=== PATIENT | male | born 1940 | race Caucasian/White ===

== ENCOUNTER 2017-10-22 13:50 | Inpatient (IN) | payer MEDICARE, OTHER ==
--- NOTE | 2017-10-22 14:57 | EDM.PDOC ---
ED HPI GENERAL MEDICAL PROBLEM - General Chief Complaint: General Stated Complaint: WEAK Time Seen by Provider: 10/22/17 14:00 Source of Information: Reports: Patient, Family History Limitations: Reports: Altered Mental Status - History of Present Illness INITIAL COMMENTS - FREE TEXT/NARRATIVE: 77 y.o.w.m cam with his brother in law to the ed due mental status changes, forgetfulness of recent events, disorientation to time, person and event. Pt had a recent auction and the Pt did not remember what he had to sell and if the produces were workin/sellable. He did not eat in the past 3 days. His 1998. He lives by himself close to his sister. Pt is a poor historian. BP 152/87 pulse 108 RR 18 Pulse ox 95% 0n RA, Temp 36.7 Onset Date: 10/19/17 Onset Time: 07:00 Duration: Day(s):, Getting Worse Location: Reports: Generalized Quality: Reports: Other (forgetfullness) Severity: Moderate Improves with: Reports: None Worsens with: Reports: None Context: Reports: Other Associated Symptoms: Reports: Loss of Appetite Generalized Pain Score (Numeric/FACES): 4 denies any pain when asked at present time. Pain Score (Numeric/FACES): 0 LEFT KNEE Pain Score (Numeric/FACES): 3 - Related Data Allergies Allergy/AdvReac Type Severity Reaction Status Date / Time No Known Allergies Allergy Unverified 10/22/17 14:20 Home Meds: Home Meds Gabapentin [Neurontin] 600 mg PO QID 10/22/17 [History] traZODone HCl [Trazodone HCl] 150 mg PO BEDTIME 10/22/17 [History] Acetaminophen [Tylenol Extra Strength] 1,000 mg PO Q6H PRN 10/23/17 [History] Donepezil HCl [Aricept] 10 mg PO DAILY #30 tablet 10/24/17 [Rx] ED ROS GENERAL - Review of Systems Review Of Systems: Unable To Obtain (forgetfulness, Ox1) ED EXAM, GENERAL - Physical Exam Exam: See Below Exam Limited By: Altered Mental Status General Appearance: Alert, WD/WN, Mild Distress Eye Exam: Bilateral Eye: EOMI, Normal Inspection, Proptosis (minor exophthalmus) Ears: Normal External Exam, Normal Canal Ear Exam: Bilateral Ear: Auricle Normal Nose: Normal Inspection, Normal Mucosa Throat/Mouth: Normal Lips, No Airway Compromise, Other (dry mucosal membrane) Head: Atraumatic, Normocephalic Neck: Normal Inspection, Supple, Non-Tender, Full Range of Motion Respiratory/Chest: No Respiratory Distress, Lungs Clear, Normal Breath Sounds, Chest Non-Tender Cardiovascular: Normal Peripheral Pulses, Regular Rate, Rhythm Peripheral Pulses: 1+: Brachial (L) GI/Abdominal: Normal Bowel Sounds, Soft, Non-Tender, No Organomegaly, No Mass (Male) Exam: No Hernia, Deferred Rectal (Males) Exam: Deferred Back Exam: Normal Inspection, Full Range of Motion Extremities: Normal Inspection, Normal Range of Motion, Non-Tender, No Pedal Edema, Normal Capillary Refill Neurological: Alert, CN II-XII Intact, Normal Gait, Slow to Respond, Memory Loss Recent Events Psychiatric: Depressed Mood Skin Exam: Warm, Dry, Intact, Normal Color, No Rash Lymphatic: No Adenopathy Course - Vital Signs Text/Narrative:: 77 y.o.w.m cam with his brother in law to the ed due mental status changes, forgetfulness of recent events, disorientation to time, person and event. Pt had a recent auction and the Pt did not remember what he had to sell and if the produces were workin/sellable. He did not eat in the past 3 days. His 1998. He lives by himself close to his sister. Pt is a poor historian. BP 152/87 pulse 108 RR 18 Pulse ox 95% 0n RA, Temp 36.7 PE: Thin 77 y.o.w.m OX1, nonspecific complains Imaging: Brain atrophy including mod frontocortical atrophy Labs: Lactic acid 2.5 K 3.3 Glc 136 Etoh 0.03 TSH 1.07 Impression: Mental status changes with forgetfulness, disorientation and loss of apatite. Hypokalemia, dehydration 3.01 pm Consultation: Dr. Arteaga, Hospitalist: Accepted pt for admission Last Recorded V/S: Last Vital Signs Temp 36.9 C 10/24/17 07:25 Pulse 75 10/24/17 07:25 Resp 20 10/24/17 07:25 BP 130/90 10/24/17 07:25 Pulse Ox 96 10/24/17 07:25 - Orders/Labs/Meds Labs: Laboratory Tests 10/22/17 10/22/17 10/22/17 Range/Units 14:25 14:25 14:25 WBC 9.2 (4.5-12.0) X10-3/uL RBC 5.06 (4.30-5.75) x10(6)uL Hgb 15.7 H (11.5-15.5) g/dL Hct 47.5 (30.0-51.3) % MCV 94.0 (80-96) fL MCH 31.1 (27.7-33.6) pg MCHC 33.1 (32.2-35.4) g/dL RDW 13.2 (11.5-15.5) % Plt Count 381 H (125-369) X10(3)uL MPV 7.6 (7.4-10.4) fL Neut % (Auto) 72.7 (46-82) % Lymph % (Auto) 15.2 (13-37) % Irion % (Auto) 11.2 (4-12) % Eos % (Auto) 0 L (1.0-5.0) % Baso % (Auto) 1 (0-2) % Neut # (Auto) 6.8 (1.6-8.3) # Lymph # (Auto) 1.4 (0.6-5.0) # Irion # (Auto) 1.0 (0.0-1.3) # Eos # (Auto) 0.0 (0.0-0.8) # Baso # (Auto) 0.0 (0.0-0.2) # Sodium 139 (135-145) mmol/L Potassium 3.3 L (3.5-5.3) mmol/L Chloride 99 L (100-110) mmol/L Carbon Dioxide 28 (21-32) mmol/L BUN 36 H (7-18) mg/dL Creatinine 1.1 (0.70-1.30) mg/dL Est Cr Clr Drug Dosing 54.45 mL/min Estimated GFR (MDRD) > 60 (>60) BUN/Creatinine Ratio 32.7 H (9-20) Glucose 136 H (80-116) mg/dL Lactic Acid (0.4-2.2) mmol/L Calcium 9.5 (8.6-10.2) mg/dL Phosphorus (2.6-4.6) mg/dL Magnesium (1.8-2.5) mg/dL NT-Pro-B Natriuret Pep 254 (<=450) pg/mL TSH, Ultra Sensitive (0.36-3.74) IU/mL Ethyl Alcohol (<0.03) % 10/22/17 10/22/17 10/22/17 Range/Units 14:25 14:25 14:25 WBC (4.5-12.0) X10-3/uL RBC (4.30-5.75) x10(6)uL Hgb (11.5-15.5) g/dL Hct (30.0-51.3) % MCV (80-96) fL MCH (27.7-33.6) pg MCHC (32.2-35.4) g/dL RDW (11.5-15.5) % Plt Count (125-369) X10(3)uL MPV (7.4-10.4) fL Neut % (Auto) (46-82) % Lymph % (Auto) (13-37) % Irion % (Auto) (4-12) % Eos % (Auto) (1.0-5.0) % Baso % (Auto) (0-2) % Neut # (Auto) (1.6-8.3) # Lymph # (Auto) (0.6-5.0) # Irion # (Auto) (0.0-1.3) # Eos # (Auto) (0.0-0.8) # Baso # (Auto) (0.0-0.2) # Sodium (135-145) mmol/L Potassium (3.5-5.3) mmol/L Chloride (100-110) mmol/L Carbon Dioxide (21-32) mmol/L BUN (7-18) mg/dL Creatinine (0.70-1.30) mg/dL Est Cr Clr Drug Dosing mL/min Estimated GFR (MDRD) (>60) BUN/Creatinine Ratio (9-20) Glucose (80-116) mg/dL Lactic Acid 2.5 H (0.4-2.2) mmol/L Calcium (8.6-10.2) mg/dL Phosphorus (2.6-4.6) mg/dL Magnesium (1.8-2.5) mg/dL NT-Pro-B Natriuret Pep (<=450) pg/mL TSH, Ultra Sensitive 1.07 (0.36-3.74) IU/mL Ethyl Alcohol < 0.03 (<0.03) % 10/22/17 Range/Units 14:25 WBC (4.5-12.0) X10-3/uL RBC (4.30-5.75) x10(6)uL Hgb (11.5-15.5) g/dL Hct (30.0-51.3) % MCV (80-96) fL MCH (27.7-33.6) pg MCHC (32.2-35.4) g/dL RDW (11.5-15.5) % Plt Count (125-369) X10(3)uL MPV (7.4-10.4) fL Neut % (Auto) (46-82) % Lymph % (Auto) (13-37) % Irion % (Auto) (4-12) % Eos % (Auto) (1.0-5.0) % Baso % (Auto) (0-2) % Neut # (Auto) (1.6-8.3) # Lymph # (Auto) (0.6-5.0) # Irion # (Auto) (0.0-1.3) # Eos # (Auto) (0.0-0.8) # Baso # (Auto) (0.0-0.2) # Sodium (135-145) mmol/L Potassium (3.5-5.3) mmol/L Chloride (100-110) mmol/L Carbon Dioxide (21-32) mmol/L BUN (7-18) mg/dL Creatinine (0.70-1.30) mg/dL Est Cr Clr Drug Dosing mL/min Estimated GFR (MDRD) (>60) BUN/Creatinine Ratio (9-20) Glucose (80-116) mg/dL Lactic Acid (0.4-2.2) mmol/L Calcium (8.6-10.2) mg/dL Phosphorus 3.3 (2.6-4.6) mg/dL Magnesium 1.8 (1.8-2.5) mg/dL NT-Pro-B Natriuret Pep (<=450) pg/mL TSH, Ultra Sensitive (0.36-3.74) IU/mL Ethyl Alcohol (<0.03) % Meds: Medications Discontinued Medications Generic Name Dose Route Start Last Admin Trade Name Freq PRN Reason Stop Dose Admin Al Hydroxide/Mg Hydroxide 30 ml 10/22/17 21:22 10/22/17 21:42 Mag-Al Susp PO 30 ml Q4H PRN Administration Heartburn Sodium Chloride 1,000 mls @ 125 mls/hr 10/22/17 17:45 10/23/17 02:02 Normal Saline IV 125 mls/hr ASDIRECTED DAVID Administration Potassium Chloride 20 meq 10/23/17 09:00 10/24/17 09:30 Klor-Con M20 PO 20 meq BID DAVID Administration Quetiapine Fumarate 25 mg 10/22/17 21:00 10/23/17 20:17 Seroquel PO 25 mg BEDTIME DAVID Administration Sodium Chloride 10 ml 10/22/17 18:04 10/22/17 19:15 Saline Flush FLUSH 10 ml ASDIRECTED PRN Administration Keep Vein Open Sodium Chloride 10 ml 10/23/17 08:20 Saline Flush FLUSH ASDIRECTED PRN flush med Trolamine Salicylate 1 gm 10/24/17 04:45 10/24/17 05:05 Aspercreme 10% TOP 1 applic Q1H PRN Administration pain in knee Departure - Departure Time of Disposition: 07:00 Disposition: Admitted As Inpatient 64 Condition: Fair Clinical Impression: Mental status change - Discharge Information
--- NOTE | 2017-10-22 15:23 | CT ---
INDICATION: Mental status change, confusion, frontal headache. HEAD CT WITHOUT CONTRAST: Serial contiguous 2.5 and 5-mm sections were obtained through the brain without contrast and revealed no definite cranial abnormality. Total Exam DLP = 949.36 mGy-cm. Mastoid air cells and paranasal air cells appear to be fairly well aerated. Calcifications are noted in the internal carotid arteries. No shift of midline structures was seen. Ventricles are prominent, compatible with central atrophy. Frontocortical atrophy is also noted relatively prominently. Decreased density is patchy throughout the white matter, compatible with moderate to moderately severe microvascular disease, although other cause of leukoencephalopathy cannot be excluded. Additionally, there is an area of decreased density in the posterior frontoparietal area, parasagittal on the left , which could represent an old thrombotic CVA. No other abnormal areas of density were suggested - no bleeding site or hematoma was seen. IMPRESSION: 1. No definite acute intracranial abnormality. 2. 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 3. Central and frontocortical atrophy. 4. 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 Report was called to Dr. Salamanca at approximately 1500 hours, 10/22/2017. [facility]
--- NOTE | 2017-10-22 17:46 | PCM.HP ---
H&P History of Present Illness - General Date of Service: 10/22/17 Admit Problem/Dx: Admission Diagnosis/Problem Admission Diagnosis/Problem Mental status, decreased Source of Information: Patient, Family, Old Records History Limitations: Reports: Altered Mental Status - History of Present Illness Initial Comments - Free Text/Narative: Gonzalez is a 77-year-old male well-known to me. He came to the ER by his friend because of alteration of mental status. Last 2-3 days is noted to be confused eating very little and feeling poorly. He denies any pain headache chest pain or shortness of breath. And is not sure these lost any weight. Is previously healthy with exception of diverticular disease, recent left knee replacement and foot surgery. He said some chronic back pain in the past as well. Generalized Pain Score (Numeric/FACES): 4 - Related Data Allergies/Adverse Reactions: Allergies Allergy/AdvReac Type Severity Reaction Status Date / Time No Known Allergies Allergy Unverified 10/22/17 14:20 Home Medications: Home Meds Gabapentin [Neurontin] 600 mg PO BID 10/22/17 [History] traZODone HCl [Trazodone HCl] 150 mg PO BEDTIME 10/22/17 [History] Past Medical History - Past Health History Medical/Surgical History: Denies Medical/Surgical History Gastrointestinal History: Reports: GERD Musculoskeletal History: Reports: Arthritis, Back Pain, Chronic Psychiatric History: Reports: Other (See Below) Other Psychiatric History: IS ALITTLE FORGETFUL, LIKE DATE, SOME PAST EVENTS Dermatologic History: Reports: None - Infectious Disease History Infectious Disease History: Reports: None - Past Surgical History GI Surgical History: Reports: Cholecystectomy, Colonoscopy, Hernia, Abdominal Musculoskeletal Surgical History: Reports: Knee Replacement Dermatological Surgical History: Reports: Skin Graft, Other (See Below) Social & Family History - Family History Family Medical History: Unobtainable - Tobacco Use Smoking Status *Q: Never Smoker Second Hand Smoke Exposure: No - Caffeine Use Caffeine Use: Reports: Coffee, Soda - Alcohol Use Days Per Week of Alcohol Use: 3 Number of Drinks Per Day: 2 Total Drinks Per Week: 6 Date of Last Drink: 10/19/17 Time of Last Drink: 16:00 - Recreational Drug Use Recreational Drug Use: No H&P Review of Systems - Review of Systems: Review Of Systems: ROS reveals no pertinent complaints other than HPI. Exam - Exam Exam: See Below - Vital Signs Vital Signs: Last Vital Signs Temp 98.1 F 10/22/17 16:01 Pulse 104 H 10/22/17 16:01 Resp 22 H 10/22/17 16:01 BP 155/103 H 10/22/17 16:01 Pulse Ox 95 10/22/17 16:01 Weight: 71.94 kg - Exam General: Alert, Oriented, 4 HEENT: PERRLA, Hearing Intact, Mucosa Moist & [place], Nares Patent, Normal Nasal Septum, Posterior Pharynx Clear, Conjunctiva Clear, EOMI, EACs Clear, TMs Clear Neck: Supple, Trachea Midline, 2 Lungs: Clear to Auscultation, Normal Respiratory Effort Cardiovascular: Regular Rate, Regular Rhythm GI/Abdominal Exam: Normal Bowel Sounds, Soft, Non-Tender, No Organomegaly, No Distention, No Abnormal Bruit, No Mass, Pelvis Stable (Male) Exam: Deferred Rectal (Males) Exam: Normal Exam, Normal Rectal Tone, Prostate Normal Back Exam: Normal Inspection, Full Range of Motion, NT Extremities: Normal Inspection, Normal Range of Motion, Non-Tender, No Pedal Edema, Normal Capillary Refill Skin: Warm, Dry, Intact Neurological: Cranial Nerves Intact, Reflexes Equal Bilateral Neuro Extensive - Mental Status: Alert, Oriented x3, Normal Mood/Affect, Normal Cognition Neuro Extensive - Motor, Sensory, Reflexes: CN II-XII Intact, Normal Gait, Normal Reflexes Psychiatric: Alert, Normal Affect, Other (confused) - Patient Data Lab Results Last 24 hrs: Laboratory Results - last 24 hr 10/22/17 10/22/17 10/22/17 Range/Units 14:25 14:25 14:25 WBC 9.2 (4.5-12.0) X10-3/uL RBC 5.06 (4.30-5.75) x10(6)uL Hgb 15.7 H (11.5-15.5) g/dL Hct 47.5 (30.0-51.3) % MCV 94.0 (80-96) fL MCH 31.1 (27.7-33.6) pg MCHC 33.1 (32.2-35.4) g/dL RDW 13.2 (11.5-15.5) % Plt Count 381 H (125-369) X10(3)uL MPV 7.6 (7.4-10.4) fL Neut % (Auto) 72.7 (46-82) % Lymph % (Auto) 15.2 (13-37) % [place] % (Auto) 11.2 (4-12) % Eos % (Auto) 0 L (1.0-5.0) % Baso % (Auto) 1 (0-2) % Neut # (Auto) 6.8 (1.6-8.3) # Lymph # (Auto) 1.4 (0.6-5.0) # [place] # (Auto) 1.0 (0.0-1.3) # Eos # (Auto) 0.0 (0.0-0.8) # Baso # (Auto) 0.0 (0.0-0.2) # Sodium 139 (135-145) mmol/L Potassium 3.3 L (3.5-5.3) mmol/L Chloride 99 L (100-110) mmol/L Carbon Dioxide 28 (21-32) mmol/L BUN 36 H (7-18) mg/dL Creatinine 1.1 (0.70-1.30) mg/dL Est Cr Clr Drug Dosing 54.45 mL/min Estimated GFR (MDRD) > 60 (>60) BUN/Creatinine Ratio 32.7 H (9-20) Glucose 136 H (80-116) mg/dL Lactic Acid (0.4-2.2) mmol/L Calcium 9.5 (8.6-10.2) mg/dL NT-Pro-B Natriuret Pep 254 (<=450) pg/mL TSH, Ultra Sensitive (0.36-3.74) IU/mL 10/22/17 10/22/17 Range/Units 14:25 14:25 WBC (4.5-12.0) X10-3/uL RBC (4.30-5.75) x10(6)uL Hgb (11.5-15.5) g/dL Hct (30.0-51.3) % MCV (80-96) fL MCH (27.7-33.6) pg MCHC (32.2-35.4) g/dL RDW (11.5-15.5) % Plt Count (125-369) X10(3)uL MPV (7.4-10.4) fL Neut % (Auto) (46-82) % Lymph % (Auto) (13-37) % [place] % (Auto) (4-12) % Eos % (Auto) (1.0-5.0) % Baso % (Auto) (0-2) % Neut # (Auto) (1.6-8.3) # Lymph # (Auto) (0.6-5.0) # Ransom # (Auto) (0.0-1.3) # Eos # (Auto) (0.0-0.8) # Baso # (Auto) (0.0-0.2) # Sodium (135-145) mmol/L Potassium (3.5-5.3) mmol/L Chloride (100-110) mmol/L Carbon Dioxide (21-32) mmol/L BUN (7-18) mg/dL Creatinine (0.70-1.30) mg/dL Est Cr Clr Drug Dosing mL/min Estimated GFR (MDRD) (>60) BUN/Creatinine Ratio (9-20) Glucose (80-116) mg/dL Lactic Acid 2.5 H (0.4-2.2) mmol/L Calcium (8.6-10.2) mg/dL NT-Pro-B Natriuret Pep (<=450) pg/mL TSH, Ultra Sensitive 1.07 (0.36-3.74) IU/mL Result Diagrams: 10/22/17 14:25 10/22/17 14:25 - Problem List (1) Delirium SNOMED Code(s): 9252500 ICD Code: R41.0 - DISORIENTATION, UNSPECIFIED Status: Acute Current Visit : Yes (2) Elevated BP without diagnosis of hypertension SNOMED Code(s): 676788806 ICD Code: R03.0 - ELEVATED BLOOD-PRESSURE READING, W/O DIAGNOSIS OF HTN Status: Acute Current Visit: Yes (3) Dehydration SNOMED Code(s): 84077024 ICD Code: E86.0 - DEHYDRATION Status: Acute Current Visit: Yes Problem List Initiated/Reviewed/Updated: Yes Orders Last 24hrs: Active Orders 24 hr Category Date Time Status Patient Status [ADT] Routine ADT 10/22/17 15:45 Active Height and Weight [RC] DAILY Care 10/22/17 17:31 Ordered Intake and Output [RC] QSHIFT Care 10/22/17 17:33 Ordered Oxygen Therapy [RC] PRN Care 10/22/17 15:45 Active Oxygen Therapy [RC] PRN Care 10/22/17 17:33 Ordered Up With Assistance [RC] ASDIRECTED Care 10/22/17 15:45 Active VTE/DVT Education [RC] Per Unit Routine Care 10/22/17 15:45 Active VTE/DVT Education [RC] Per Unit Routine Care 10/22/17 17:33 Ordered Vital Signs [RC] Q4H Care 10/22/17 15:45 Active Regular Diet [DIET] Diet 10/22/17 Breakfast Ordered Brain wo Cont [MR] Routine Exams 10/22/17 17:31 Ordered BASIC METABOLIC PANEL,BMP [CHEM] AM Lab 10/23/17 05:11 Ordered CBC WITH AUTO DIFF [HEME] AM Lab 10/23/17 05:11 Ordered DRUG SCREEN, URINE ALERE [URCHEM] Stat Lab 10/22/17 15:12 Ordered UA W/MICROSCOPIC [URIN] Stat Lab 10/22/17 14:13 Ordered QUEtiapine [SEROquel] Med 10/22/17 21:00 Ordered 25 mg PO BEDTIME Sodium Chloride 0.9% @ 125 MLS/HR (1000ml) Med 10/22/17 17:45 Ordered Sodium Chloride 0.9% [Normal Saline] 1,000 ml IV ASDIRECTED Resuscitation Status Routine Resus Stat 10/22/17 15:45 Ordered Medication Orders Sodium Chloride (Normal Saline) 1,000 mls @ 125 mls/hr IV ASDIRECTED DAVID Quetiapine Fumarate (Seroquel) 25 mg PO BEDTIME [facility] Assessment/Plan Comment:: Apart From mild dehydration, the cause of his confusion and disorientation is unclear. He does have times of lucid conversation but mostly disoriented. I would admit him with IV fluid replacement, and order for an MRI to be done in the morning the brain. I've held off narcotics, and Neurontin. I will also helped trazodone, and will give him Seroquel at night if he gets agitated.
[2017-10-22] MEDS: Sodium Chloride 0.9% 1,000 ML IV SCH (17:51)
[2017-10-22] MEDS ORDERED: Sodium Chloride 0.9% 10 ML Syringe FLUSH PRN (18:04)
[2017-10-22] MEDS: QUEtiapine 25 MG Tab PO SCH (20:45)
[2017-10-22] MEDS ORDERED: Aluminum Hydroxide/Magnesium Hydroxide Susp 30 ML Cup PO PRN (21:22)
[2017-10-23] MEDS: Sodium Chloride 0.9% 1,000 ML IV SCH (02:02)
[2017-10-23] MEDS ORDERED: Sodium Chloride 0.9% 10 ML Syringe FLUSH PRN (08:20)
--- NOTE | 2017-10-23 08:33 | PCM.PN ---
- General Info Date of Service: 10/23/17 Subjective Update: Patient's NO complaint today. He does not recall of what happened yesterday, and still has some signs of disorientation especially to time date. - Review of Systems Pulmonary: Reports: No Symptoms Cardiovascular: Reports: No Symptoms Gastrointestinal: Reports: No Symptoms Genitourinary: Reports: No Symptoms - Patient Data Vitals - Most Recent: Last Vital Signs Temp 97.7 F 10/23/17 07:27 Pulse 72 10/23/17 07:27 Resp 18 10/23/17 07:27 BP 129/77 10/23/17 07:27 Pulse Ox 93 L 10/23/17 07:27 Weight - Most Recent: 73.227 kg I&O - Last 24 Hours: Intake & Output 10/22/17 10/23/17 10/23/17 22:59 06:59 14:59 Intake Total 1260 200 Output Total 80 300 Balance -80 960 200 Lab Results Last 24 Hours: Laboratory Results - last 24 hr 10/22/17 10/22/17 10/22/17 Range/Units 14:25 14:25 14:25 WBC 9.2 (4.5-12.0) X10-3/uL RBC 5.06 (4.30-5.75) x10(6)uL Hgb 15.7 H (11.5-15.5) g/dL Hct 47.5 (30.0-51.3) % MCV 94.0 (80-96) fL MCH 31.1 (27.7-33.6) pg MCHC 33.1 (32.2-35.4) g/dL RDW 13.2 (11.5-15.5) % Plt Count 381 H (125-369) X10(3)uL MPV 7.6 (7.4-10.4) fL Neut % (Auto) 72.7 (46-82) % Lymph % (Auto) 15.2 (13-37) % Isabella % (Auto) 11.2 (4-12) % Eos % (Auto) 0 L (1.0-5.0) % Baso % (Auto) 1 (0-2) % Neut # (Auto) 6.8 (1.6-8.3) # Lymph # (Auto) 1.4 (0.6-5.0) # Isabella # (Auto) 1.0 (0.0-1.3) # Eos # (Auto) 0.0 (0.0-0.8) # Baso # (Auto) 0.0 (0.0-0.2) # Sodium 139 (135-145) mmol/L Potassium 3.3 L (3.5-5.3) mmol/L Chloride 99 L (100-110) mmol/L Carbon Dioxide 28 (21-32) mmol/L BUN 36 H (7-18) mg/dL Creatinine 1.1 (0.70-1.30) mg/dL Est Cr Clr Drug Dosing 54.45 mL/min Estimated GFR (MDRD) > 60 (>60) BUN/Creatinine Ratio 32.7 H (9-20) Glucose 136 H (80-116) mg/dL Lactic Acid (0.4-2.2) mmol/L Calcium 9.5 (8.6-10.2) mg/dL Phosphorus (2.6-4.6) mg/dL Magnesium (1.8-2.5) mg/dL NT-Pro-B Natriuret Pep 254 (<=450) pg/mL TSH, Ultra Sensitive (0.36-3.74) IU/mL Urine Color (YELLOW) Urine Appearance (CLEAR) Urine pH (5.0-6.5) Ur Specific [place] (1.010-1.025) Urine Protein (NEGATIVE) mg/dL Urine Glucose (UA) (NEGATIVE) mg/dL Urine Ketones (NEGATIVE) mg/dL Urine Occult Blood (NEGATIVE) Urine Nitrite (NEGATIVE) Urine Bilirubin (NEGATIVE) Urine Urobilinogen (NEGATIVE) mg/dL Ur Leukocyte Esterase (NEGATIVE) Urine RBC (0) Urine WBC (0) Ur Squamous Epith Cells (NS,R,O) Urine Bacteria (NS) Urine Opiates Screen (NEGATIVE) Ur Oxycodone Screen (NEGATIVE) Ur Propoxyphene Screen (NEGATIVE) Ur Barbituates Screen (NEGATIVE) Ur Tricyclics Screen (NEGATIVE) Ur Phencyclidine Scrn (NEGATIVE) Ur Amphetamine Screen (NEGATIVE) Urine MDMA Screen (NEGATIVE) U Benzodiazepines Scrn (NEGATIVE) U Cocaine Metab Screen (NEGATIVE) U Marijuana (THC) Screen (NEGATIVE) Ethyl Alcohol (<0.03) % 10/22/17 10/22/17 10/22/17 Range/Units 14:25 14:25 14:25 WBC (4.5-12.0) X10-3/uL RBC (4.30-5.75) x10(6)uL Hgb (11.5-15.5) g/dL Hct (30.0-51.3) % MCV (80-96) fL MCH (27.7-33.6) pg MCHC (32.2-35.4) g/dL RDW (11.5-15.5) % Plt Count (125-369) X10(3)uL MPV (7.4-10.4) fL Neut % (Auto) (46-82) % Lymph % (Auto) (13-37) % Isabella % (Auto) (4-12) % Eos % (Auto) (1.0-5.0) % Baso % (Auto) (0-2) % Neut # (Auto) (1.6-8.3) # Lymph # (Auto) (0.6-5.0) # Isabella # (Auto) (0.0-1.3) # Eos # (Auto) (0.0-0.8) # Baso # (Auto) (0.0-0.2) # Sodium (135-145) mmol/L Potassium (3.5-5.3) mmol/L Chloride (100-110) mmol/L Carbon Dioxide (21-32) mmol/L BUN (7-18) mg/dL Creatinine (0.70-1.30) mg/dL Est Cr Clr Drug Dosing mL/min Estimated GFR (MDRD) (>60) BUN/Creatinine Ratio (9-20) Glucose (80-116) mg/dL Lactic Acid 2.5 H (0.4-2.2) mmol/L Calcium (8.6-10.2) mg/dL Phosphorus (2.6-4.6) mg/dL Magnesium (1.8-2.5) mg/dL NT-Pro-B Natriuret Pep (<=450) pg/mL TSH, Ultra Sensitive 1.07 (0.36-3.74) IU/mL Urine Color (YELLOW) Urine Appearance (CLEAR) Urine pH (5.0-6.5) Ur Specific [place] (1.010-1.025) Urine Protein (NEGATIVE) mg/dL Urine Glucose (UA) (NEGATIVE) mg/dL Urine Ketones (NEGATIVE) mg/dL Urine Occult Blood (NEGATIVE) Urine Nitrite (NEGATIVE) Urine Bilirubin (NEGATIVE) Urine Urobilinogen (NEGATIVE) mg/dL Ur Leukocyte Esterase (NEGATIVE) Urine RBC (0) Urine WBC (0) Ur Squamous Epith Cells (NS,R,O) Urine Bacteria (NS) Urine Opiates Screen (NEGATIVE) Ur Oxycodone Screen (NEGATIVE) Ur Propoxyphene Screen (NEGATIVE) Ur Barbituates Screen (NEGATIVE) Ur Tricyclics Screen (NEGATIVE) Ur Phencyclidine Scrn (NEGATIVE) Ur Amphetamine Screen (NEGATIVE) Urine MDMA Screen (NEGATIVE) U Benzodiazepines Scrn (NEGATIVE) U Cocaine Metab Screen (NEGATIVE) U Marijuana (THC) Screen (NEGATIVE) Ethyl Alcohol < 0.03 (<0.03) % 10/22/17 10/22/17 10/22/17 Range/Units 14:25 20:45 20:45 WBC (4.5-12.0) X10-3/uL RBC (4.30-5.75) x10(6)uL Hgb (11.5-15.5) g/dL Hct (30.0-51.3) % MCV (80-96) fL MCH (27.7-33.6) pg MCHC (32.2-35.4) g/dL RDW (11.5-15.5) % Plt Count (125-369) X10(3)uL MPV (7.4-10.4) fL Neut % (Auto) (46-82) % Lymph % (Auto) (13-37) % Isabella % (Auto) (4-12) % Eos % (Auto) (1.0-5.0) % Baso % (Auto) (0-2) % Neut # (Auto) (1.6-8.3) # Lymph # (Auto) (0.6-5.0) # Isabella # (Auto) (0.0-1.3) # Eos # (Auto) (0.0-0.8) # Baso # (Auto) (0.0-0.2) # Sodium (135-145) mmol/L Potassium (3.5-5.3) mmol/L Chloride (100-110) mmol/L Carbon Dioxide (21-32) mmol/L BUN (7-18) mg/dL Creatinine (0.70-1.30) mg/dL Est Cr Clr Drug Dosing mL/min Estimated GFR (MDRD) (>60) BUN/Creatinine Ratio (9-20) Glucose (80-116) mg/dL Lactic Acid (0.4-2.2) mmol/L Calcium (8.6-10.2) mg/dL Phosphorus 3.3 (2.6-4.6) mg/dL Magnesium 1.8 (1.8-2.5) mg/dL NT-Pro-B Natriuret Pep (<=450) pg/mL TSH, Ultra Sensitive (0.36-3.74) IU/mL Urine Color Yellow (YELLOW) Urine Appearance Clear (CLEAR) Urine pH 6.0 (5.0-6.5) Ur Specific [place] 1.020 (1.010-1.025) Urine Protein Negative (NEGATIVE) mg/dL Urine Glucose (UA) Normal (NEGATIVE) mg/dL Urine Ketones Negative (NEGATIVE) mg/dL Urine Occult Blood Negative (NEGATIVE) Urine Nitrite Negative (NEGATIVE) Urine Bilirubin Negative (NEGATIVE) Urine Urobilinogen Normal (NEGATIVE) mg/dL Ur Leukocyte Esterase Negative (NEGATIVE) Urine RBC 0-5 (0) Urine WBC 0-5 (0) Ur Squamous Epith Cells Rare (NS,R,O) Urine Bacteria Few H (NS) Urine Opiates Screen Negative (NEGATIVE) Ur Oxycodone Screen Negative (NEGATIVE) Ur Propoxyphene Screen Negative (NEGATIVE) Ur Barbituates Screen Negative (NEGATIVE) Ur Tricyclics Screen Negative (NEGATIVE) Ur Phencyclidine Scrn Negative (NEGATIVE) Ur Amphetamine Screen Negative (NEGATIVE) Urine MDMA Screen Negative (NEGATIVE) U Benzodiazepines Scrn Negative (NEGATIVE) U Cocaine Metab Screen Negative (NEGATIVE) U Marijuana (THC) Screen Negative (NEGATIVE) Ethyl Alcohol (<0.03) % 10/23/17 10/23/17 Range/Units 06:02 06:02 WBC 8.2 (4.5-12.0) X10-3/uL RBC 4.39 (4.30-5.75) x10(6)uL Hgb 14.0 (11.5-15.5) g/dL Hct 41.7 (30.0-51.3) % MCV 95.0 (80-96) fL MCH 31.8 (27.7-33.6) pg MCHC 33.5 (32.2-35.4) g/dL RDW 13.3 (11.5-15.5) % Plt Count 305 (125-369) X10(3)uL MPV 7.4 (7.4-10.4) fL Neut % (Auto) 68.1 (46-82) % Lymph % (Auto) 19.2 (13-37) % Isabella % (Auto) 10.9 (4-12) % Eos % (Auto) 1 (1.0-5.0) % Baso % (Auto) 1 (0-2) % Neut # (Auto) 5.6 (1.6-8.3) # Lymph # (Auto) 1.6 (0.6-5.0) # Isabella # (Auto) 0.9 (0.0-1.3) # Eos # (Auto) 0.1 (0.0-0.8) # Baso # (Auto) 0.0 (0.0-0.2) # Sodium 139 (135-145) mmol/L Potassium 3.1 L (3.5-5.3) mmol/L Chloride 104 D (100-110) mmol/L Carbon Dioxide 27 (21-32) mmol/L BUN 24 H D (7-18) mg/dL Creatinine 0.8 (0.70-1.30) mg/dL Est Cr Clr Drug Dosing 72.44 mL/min Estimated GFR (MDRD) > 60 (>60) BUN/Creatinine Ratio 30.0 H (9-20) Glucose 95 (80-116) mg/dL Lactic Acid (0.4-2.2) mmol/L Calcium 8.4 L (8.6-10.2) mg/dL Phosphorus (2.6-4.6) mg/dL Magnesium (1.8-2.5) mg/dL NT-Pro-B Natriuret Pep (<=450) pg/mL TSH, Ultra Sensitive (0.36-3.74) IU/mL Urine Color (YELLOW) Urine Appearance (CLEAR) Urine pH (5.0-6.5) Ur Specific [place] (1.010-1.025) Urine Protein (NEGATIVE) mg/dL Urine Glucose (UA) (NEGATIVE) mg/dL Urine Ketones (NEGATIVE) mg/dL Urine Occult Blood (NEGATIVE) Urine Nitrite (NEGATIVE) Urine Bilirubin (NEGATIVE) Urine Urobilinogen (NEGATIVE) mg/dL Ur Leukocyte Esterase (NEGATIVE) Urine RBC (0) Urine WBC (0) Ur Squamous Epith Cells (NS,R,O) Urine Bacteria (NS) Urine Opiates Screen (NEGATIVE) Ur Oxycodone Screen (NEGATIVE) Ur Propoxyphene Screen (NEGATIVE) Ur Barbituates Screen (NEGATIVE) Ur Tricyclics Screen (NEGATIVE) Ur Phencyclidine Scrn (NEGATIVE) Ur Amphetamine Screen (NEGATIVE) Urine MDMA Screen (NEGATIVE) U Benzodiazepines Scrn (NEGATIVE) U Cocaine Metab Screen (NEGATIVE) U Marijuana (THC) Screen (NEGATIVE) Ethyl Alcohol (<0.03) % Med Orders - Current: Current Medications Al Hydroxide/Mg Hydroxide (Mag-Al Susp) 30 ml PO Q4H PRN PRN Reason: Heartburn Last Admin: 10/22/17 21:42 Dose: 30 ml Quetiapine Fumarate (Seroquel) 25 mg PO BEDTIME [facility] Last Admin: 10/22/17 20:45 Dose: 25 mg Sodium Chloride (Saline Flush) 10 ml FLUSH ASDIRECTED PRN PRN Reason: Keep Vein Open Last Admin: 10/22/17 19:15 Dose: 10 ml Discontinued Medications Sodium Chloride (Normal Saline) 1,000 mls @ 125 mls/hr IV ASDIRECTED [facility] Last Admin: 10/23/17 02:02 Dose: 125 mls/hr Sodium Chloride (Saline Flush) 10 ml FLUSH ASDIRECTED PRN PRN Reason: flush med - Exam Quality Assessment: No: Supplemental Oxygen General: Alert, Oriented, Cooperative, No Acute Distress Neurological: No New Focal Deficit Psy/Mental Status: Alert, Normal Affect, Normal Mood - Problem List & Annotations (1) Delirium SNOMED Code(s): 2088745 Code(s): R41.0 - DISORIENTATION, UNSPECIFIED Status: Acute Current Visit : Yes (2) Elevated BP without diagnosis of hypertension SNOMED Code(s): 184132697 Code(s): R03.0 - ELEVATED BLOOD-PRESSURE READING, W/O DIAGNOSIS OF HTN Status: Acute Current Visit: Yes (3) Dehydration SNOMED Code(s): 57379454 Code(s): E86.0 - DEHYDRATION Status: Acute Current Visit: Yes - Problem List Review Problem List Initiated/Reviewed/Updated: Yes - My Orders Last 24 Hours: My Active Orders 10/22/17 17:31 Height and Weight [RC] 06 10/22/17 18:04 Sodium Chloride 0.9% [Saline Flush] 10 ml FLUSH ASDIRECTED PRN 10/22/17 21:00 QUEtiapine [SEROquel] 25 mg PO BEDTIME 10/22/17 21:22 Alum Hydroxide/Mag Hydroxide [Mag-Al Susp] 30 ml PO Q4H PRN 10/23/17 08:00 Brain wo Cont [MR] Routine 10/23/17 08:19 Vital Signs [RC] PER UNIT ROUTINE 10/23/17 09:00 Potassium Chloride [Klor-Con M20] 20 meq PO BID 10/24/17 05:11 BASIC METABOLIC PANEL,BMP [CHEM] AM - Plan Plan:: The cause of his disorientation and delirium is unclear. It is possible that it could be due to Neurontin or trazodone. Of note he had a similar episode of confusion a few yearis ago after surgery for his knee at [place]. It was transient. MRI is pending today. I will replace his potassium and repeat bmp in the morning awaiting the report of medical mid MRI. Possibly discharge tomorrow.
[2017-10-23] MEDS: Potassium Chloride 20 MEQ Tab.ER PO SCH ×2 (10:06→20:17)
[2017-10-23] MEDS: QUEtiapine 25 MG Tab PO SCH (20:17)
[2017-10-24] MEDS ORDERED: Trolamine Salicylate/Aloe Vera 10% Crm 85 GM Tube TOP PRN (04:45)
--- NOTE | 2017-10-24 09:11 | PCM.PN ---
- General Info Date of Service: 10/24/17 Subjective Update: Patient's NO complaint today. He does not recall of what happened yesterday, and still has some signs of disorientation especially to time date. - Review of Systems General: Reports: No Symptoms HEENT: Reports: No Symptoms Pulmonary: Reports: No Symptoms Cardiovascular: Reports: No Symptoms Gastrointestinal: Reports: No Symptoms - Patient Data Vitals - Most Recent: Last Vital Signs Temp 98.4 F 10/23/17 16:00 Pulse 70 10/23/17 16:00 Resp 18 10/23/17 16:00 BP 139/90 10/23/17 16:00 Pulse Ox 96 10/23/17 16:00 Weight - Most Recent: 72.257 kg I&O - Last 24 Hours: Intake & Output 10/23/17 10/24/17 10/24/17 22:59 06:59 14:59 Intake Total 250 Balance 250 Lab Results Last 24 Hours: Laboratory Results - last 24 hr 10/24/17 Range/Units 06:35 Sodium 140 (135-145) mmol/L Potassium 3.6 (3.5-5.3) mmol/L Chloride 105 (100-110) mmol/L Carbon Dioxide 29 (21-32) mmol/L BUN 17 (7-18) mg/dL Creatinine 0.8 (0.70-1.30) mg/dL Est Cr Clr Drug Dosing 72.44 mL/min Estimated GFR (MDRD) > 60 (>60) BUN/Creatinine Ratio 21.3 H (9-20) Glucose 92 (80-116) mg/dL Calcium 8.6 (8.6-10.2) mg/dL Med Orders - Current: Current Medications Al Hydroxide/Mg Hydroxide (Mag-Al Susp) 30 ml PO Q4H PRN PRN Reason: Heartburn Last Admin: 10/22/17 21:42 Dose: 30 ml Potassium Chloride (Klor-Con M20) 20 meq PO BID [facility] Last Admin: 10/23/17 20:17 Dose: 20 meq Quetiapine Fumarate (Seroquel) 25 mg PO BEDTIME [facility] Last Admin: 10/23/17 20:17 Dose: 25 mg Sodium Chloride (Saline Flush) 10 ml FLUSH ASDIRECTED PRN PRN Reason: Keep Vein Open Last Admin: 10/22/17 19:15 Dose: 10 ml Trolamine Salicylate (Aspercreme 10%) 1 gm TOP Q1H PRN PRN Reason: pain in knee Last Admin: 10/24/17 05:05 Dose: 1 applic Discontinued Medications Sodium Chloride (Normal Saline) 1,000 mls @ 125 mls/hr IV ASDIRECTED [facility] Last Admin: 10/23/17 02:02 Dose: 125 mls/hr Sodium Chloride (Saline Flush) 10 ml FLUSH ASDIRECTED PRN PRN Reason: flush med - Exam General: Alert, Oriented HEENT: Pupils Equal Neck: Supple Lungs: Clear to Auscultation Cardiovascular: Regular Rate Psy/Mental Status: Alert, Normal Affect, Normal Mood - Problem List & Annotations (1) Delirium SNOMED Code(s): 3639346 Code(s): R41.0 - DISORIENTATION, UNSPECIFIED Status: Acute Current Visit : Yes (2) Elevated BP without diagnosis of hypertension SNOMED Code(s): 653080494 Code(s): R03.0 - ELEVATED BLOOD-PRESSURE READING, W/O DIAGNOSIS OF HTN Status: Acute Current Visit: Yes (3) Dehydration SNOMED Code(s): 94089171 Code(s): E86.0 - DEHYDRATION Status: Acute Current Visit: Yes - Problem List Review Problem List Initiated/Reviewed/Updated: Yes - My Orders Last 24 Hours: My Active Orders - Plan Plan:: MRI was non diagnostic.Just some chronic changes and atrophy. DC home today on Aricept,for Dementia
[2017-10-24] MEDS: Potassium Chloride 20 MEQ Tab.ER PO SCH (09:30)
--- NOTE | 2017-10-24 10:22 | DISCH ---
DISCHARGE DATE: 10/24/2017 REASON FOR ADMISSION: Alteration of mental status, delirium, hypokalemia, dehydration, elevated blood pressure, and back pain, chronic. DISCHARGE DIAGNOSES: Alteration of mental status, delirium, hypokalemia, dehydration, elevated blood pressure, and back pain, chronic. BRIEF HISTORY: Gonzalez is a 77-year-old who was brought in by family members after he was found confused and initial blood work shows dehydration. He had not been eating or drinking for a couple days. He was given IV fluids and improved significantly. A CT of the head was negative and MRI was unremarkable except cortical atrophy. He did have some memory disturbance to disorientation. His electrolytes improved. His blood pressure was normal. I discontinued the Neurontin and trazodone. I discharged him home on Aricept 10 mg a day and to followup in the office in the next 1 week. I spent more than 35 minutes in the discharge of the patient. /[id number] ANNA/GUME
== END 2017-10-24 10:45 | disposition home or self-care (01) | DRG 641 ==
LOC: FB.ED 13:50 → FB.MS 15:45
PROVIDERS: ADMIT Family Medicine; ATTEND Family Medicine
DX: E86.0 Dehydration (principal); R41.82 Altered mental status, unspecified; R03.0 Elevated blood-pressure reading, without diagnosis of hypertension; E87.6 Hypokalemia; M19.90 Unspecified osteoarthritis, unspecified site; M54.9 Dorsalgia, unspecified; G89.29 Other chronic pain; H05.20 Unspecified exophthalmos; F32.9 Major depressive disorder, single episode, unspecified; K21.9 Gastro-esophageal reflux disease without esophagitis; R53.1 Weakness; T42.6X5A Adverse effect of other antiepileptic and sedative-hypnotic drugs, initial encounter; T43.215A Adverse effect of selective serotonin and norepinephrine reuptake inhibitors, initial encounter; F03.90 Unspecified dementia, unspecified severity, without behavioral disturbance, psychotic disturbance, mood disturbance, and anxiety; G31.9 Degenerative disease of nervous system, unspecified; Z90.49 Acquired absence of other specified parts of digestive tract; Z96.652 Presence of left artificial knee joint; Z79.899 Other long term (current) drug therapy
CPT/HCPCS: 36415; 70450; 80048; 83605; 83735; 83880; 84100; 84443; 85025; 99285; G0480; 70551; 80305; 81001; A9270-GY; J7040; J7050

== ENCOUNTER 2018-08-31 08:33 | Emergency (ER) | payer BC, MEDICARE, OTHER ==
[2018-08-31] MEDS ORDERED: Lidocaine 1% with EPINEPHrine 1:100,000 10 ML MDV INFILT ONE (08:34)
--- NOTE | 2018-08-31 09:03 | EDM.PDOC ---
ED HPI GENERAL MEDICAL PROBLEM - General Chief Complaint: Laceration Stated Complaint: UPPER LIP LACERATION Time Seen by Provider: 08/31/18 08:40 - History of Present Illness INITIAL COMMENTS - FREE TEXT/NARRATIVE: This 78-year-old man probable es alone and is visited by a friend who saw him last last evening after 5 PM when he was noted to be normal. Then when his friend went to see him this morning he was noted to have a lacerations left upper lip. the facial trauma has resulted in frx the teeth to the level of the gingiva #'s 9,10,11,12. The patient doesn't remember what happened. He states he lives alone and usually has 2 drinks a night. He thought perhaps he must have fallen. He denies headache or neck ache chest pain shortness of breath compromise in vision hearing abdominal symptoms nausea vomiting diarrhea or recent falling and upper or lower extremity pain or discomfort arthritis or hip injury. He's had a previous left TKA 5 years ago which was revised. He has had cervical spine surgery with which sounds like laminectomy. lip Pain Score (Numeric/FACES): 4 - Related Data Allergies Allergy/AdvReac Type Severity Reaction Status Date / Time No Known Allergies Allergy Verified 08/31/18 09:40 Home Meds: Home Meds traZODone HCl [Trazodone HCl] 150 mg PO BEDTIME 10/22/17 [History] Acetaminophen [Tylenol Extra Strength] 1,000 mg PO Q6H PRN 10/23/17 [History] Mirtazapine 15 mg PO ASDIRECTED 08/31/18 [History] Past Medical History - Past Health History Medical/Surgical History: Denies Medical/Surgical History Gastrointestinal History: Reports: GERD Musculoskeletal History: Reports: Arthritis, Back Pain, Chronic Psychiatric History: Reports: Other (See Below) Other Psychiatric History: IS ALITTLE FORGETFUL, LIKE DATE, SOME PAST EVENTS Dermatologic History: Reports: None - Infectious Disease History Infectious Disease History: Reports: None - Past Surgical History GI Surgical History: Reports: Cholecystectomy, Colonoscopy, Hernia, Abdominal Musculoskeletal Surgical History: Reports: Knee Replacement Dermatological Surgical History: Reports: Skin Graft, Other (See Below) Social & Family History - Family History Family Medical History: Unobtainable - Caffeine Use Caffeine Use: Reports: Coffee, Soda ED ROS GENERAL - Review of Systems Review Of Systems: ROS reveals no pertinent complaints other than HPI. ED EXAM, SKIN/RASH Exam: See Below Text/Narrative:: Pleasant male who headache or neck pain. He has a notable 2 lacerations left upper lip parallels the vermilion border and one intraoral laceration. He is continually chewing on the remnant of the intraoral laceration. He has mild discomfort with lateral #12 tooth that is broken off at the gingival surface of the teeth 9/10/11 are fractured also off at the base are nontender to percussion and have yellow brown central pulp. He is accompanied by another friend Exam Limited By: No Limitations General Appearance: Alert, Mild Distress Eye Exam: Bilateral Eye: Normal Inspection Nose: Normal Inspection Throat/Mouth: Other (Left upper lip laceration and intraoral laceration left upper lip) Head: Normocephalic Neck: Normal Inspection, Supple, Non-Tender, Full Range of Motion Respiratory/Chest: No Respiratory Distress, Lungs Clear, Normal Breath Sounds, No Accessory Muscle Use, Chest Non-Tender Cardiovascular: Normal Peripheral Pulses, Regular Rate, Rhythm, No Edema, No Gallop, No JVD, No Murmur, No Rub Peripheral Pulses: 1+: Radial (L), Radial (R) GI/Abdominal: Normal Bowel Sounds, Soft, Non-Tender, No Organomegaly, No Distention, No Abnormal Bruit (Male) Exam: Deferred Rectal (Males) Exam: Deferred Back Exam: Normal Inspection Extremities: Normal Inspection, Normal Range of Motion, Non-Tender, No Pedal Edema, Normal Capillary Refill Neurological: Alert, Oriented, CN II-XII Intact, Normal Cognition, Normal Gait, Normal Reflexes, No Motor/Sensory Deficits, Other (Mild decreased hearing) Psychiatric: Normal Affect, Normal Mood Skin: Warm, Dry, Intact, Other (see description of laceration) Location, Skin: Face, Other (Left facial upper lip laceration that parallels the chiquita border) Lymphatic: Adenopathy ED SKIN PROCEDURES - Laceration/Wound Repair Left Face Lac/Wound length In cm: 5 (Patient has 3 lacerations #1) 2 cm long #2) 3 cm #3) 5 cm ) Appearance: Clean Distal NVT: Neuro & Vascular Intact Anesthetic Type: Local Local Anesthesia - Lidocaine (Xylocaine): 1% with EPI Local Anesthetic Volume: 3cc Skin Prep: Chlorhexidine (Hibiciens), Saline, Sterile Drape Exploration/Debridement/Repair: Wound Explored, Minimal Debridement, Wound Margins Revised Closed with: Sutures Suture Size: other (5-0 Ethilon 11 stitches for the 2 parallel lacerations dermis upper lip and intra oral 6 stitches of Vicryl 40) Repaired with: Vicryl Tetanus Status Addressed: Yes Complications: No Course - Vital Signs Last Recorded V/S: Last Vital Signs Temp 36.8 C 08/31/18 08:35 Pulse 126 H 08/31/18 08:35 Resp 22 H 08/31/18 08:35 BP 153/81 H 08/31/18 08:35 Pulse Ox 98 08/31/18 08:35 - Orders/Labs/Meds Orders: Active Orders 24 hr Category Date Time Status Vaccines to be Administered [RC] PER UNIT ROUTINE Care 08/31/18 11:23 Active Cervical Spine wo Cont [CT] Stat Exams 08/31/18 08:46 Taken Head wo Cont [CT] Stat Exams 08/31/18 08:45 Taken Max Facial Sinus wo Cont [CT] Stat Exams 08/31/18 08:47 Taken Labs: Laboratory Tests 08/31/18 08/31/18 08/31/18 Range/Units 08:53 08:53 08:53 WBC 16.3 H (4.5-12.0) X10-3/uL RBC 4.37 (4.30-5.75) x10(6)uL Hgb 13.6 (11.5-15.5) g/dL Hct 41.0 (30.0-51.3) % MCV 93.9 (80-96) fL MCH 31.2 (27.7-33.6) pg MCHC 33.3 (32.2-35.4) g/dL RDW 12.9 (11.5-15.5) % Plt Count 340 (125-369) X10(3)uL MPV 6.8 L (7.4-10.4) fL Add Manual Diff Yes Neutrophils % (Manual) 95 H (46-82) % Lymphocytes % (Manual) 2 L (13-37) % Monocytes % (Manual) 3 L (4-12) % PT 10.3 (8.7-11.1) INR 1.06 (0.89-1.13) Sodium (135-145) mmol/L Potassium (3.5-5.3) mmol/L Chloride (100-110) mmol/L Carbon Dioxide (21-32) mmol/L BUN (7-18) mg/dL Creatinine (0.70-1.30) mg/dL Est Cr Clr Drug Dosing mL/min Estimated GFR (MDRD) (>60) BUN/Creatinine Ratio (9-20) Glucose (80-116) mg/dL Calcium (8.6-10.2) mg/dL Total Bilirubin (0.1-1.3) mg/dL AST (5-25) IU/L ALT (12-36) U/L Alkaline Phosphatase (56-112) IU/L Troponin I 0.030 (<0.017-0.056) ng/mL Total Protein (6.0-8.0) g/dL Albumin (3.2-4.6) g/dL Globulin g/dL Albumin/Globulin Ratio 08/31/ Range/Units 08:53 WBC (4.5-12.0) X10-3/uL RBC (4.30-5.75) x10(6)uL Hgb (11.5-15.5) g/dL Hct (30.0-51.3) % MCV (80-96) fL MCH (27.7-33.6) pg MCHC (32.2-35.4) g/dL RDW (11.5-15.5) % Plt Count (125-369) X10(3)uL MPV (7.4-10.4) fL Add Manual Diff Neutrophils % (Manual) (46-82) % Lymphocytes % (Manual) (13-37) % Monocytes % (Manual) (4-12) % PT (8.7-11.1) INR (0.89-1.13) Sodium 133 L (135-145) mmol/L Potassium 3.8 (3.5-5.3) mmol/L Chloride 95 L D (100-110) mmol/L Carbon Dioxide 27 (21-32) mmol/L BUN 23 H (7-18) mg/dL Creatinine 0.9 (0.70-1.30) mg/dL Est Cr Clr Drug Dosing 65.46 mL/min Estimated GFR (MDRD) > 60 (>60) BUN/Creatinine Ratio 25.6 H (9-20) Glucose 120 H (80-116) mg/dL Calcium 9.0 (8.6-10.2) mg/dL Total Bilirubin 0.9 (0.1-1.3) mg/dL AST 20 (5-25) IU/L ALT 23 (12-36) U/L Alkaline Phosphatase 65 (56-112) IU/L Troponin I (<0.017-0.056) ng/mL Total Protein 7.2 (6.0-8.0) g/dL Albumin 3.8 (3.2-4.6) g/dL Globulin 3.4 g/dL Albumin/Globulin Ratio 1.1 Meds: Medications Discontinued Medications Generic Name Dose Route Start Last Admin Trade Name Freq PRN Reason Stop Dose Admin Diphtheria/Tetanus/Acell Pertussis 0.5 ml 08/31/18 11:23 08/31/18 11:25 Adacel IM 08/31/18 11:24 0.5 ml .ONCE ONE Administration Departure - Departure Time of Disposition: 10:45 (Patient had significant lacerations left upper lip. The medial edge traversed from the border. The 2 parallel lacerations are parallel to the surface of the report. 1 laceration was 2 cm and another lower quadrant was 3 cm. Each of those repaired with interrupted 5-0 Ethilon. Also he has a 6 cm large square shaped flap of an intraoral oral laceration that required 6 stitches of interrupted 4-0 Vicryl.) Disposition: Home, Self-Care 01 Condition: Good Clinical Impression: Laceration of face Qualifiers: Encounter type: initial encounter Qualified Code(s): S01.81XA - Laceration without foreign body of other part of head, initial encounter - Discharge Information *PRESCRIPTION DRUG MONITORING PROGRAM REVIEWED*: Not Applicable *COPY OF PRESCRIPTION DRUG MONITORING REPORT IN PATIENT REINALDO: Not Applicable Instructions: Mouth Laceration Referrals: Adarsh Weir MD [Primary Care Provider] - Forms: ED Department Discharge Additional Instructions: U have 3 lacerations one intraoral 6 cm; 2 - on the outside of your lip 1) 2 cm the other2) is 3 cm Apply bacitracin to the wound on the outside lip twice a day. Follow-up your doctor and have the sutures removed in 5-6 days. You have a tetanus booster in the ED today. If any signs of infection increased redness and warmth or marked swelling see you doctor immediately. Shower and bathe and wash your face like you normally do. Plain Tylenol for the pain take 500-800 mg 4 times a day. - My Orders Last 24 Hours: My Active Orders 08/31/18 08:45 Head wo Cont [CT] Stat 08/31/18 08:46 Cervical Spine wo Cont [CT] Stat 08/31/18 08:47 Max Facial Sinus wo Cont [CT] Stat 08/31/18 11:23 Vaccines to be Administered [RC] PER UNIT ROUTINE - Assessment/Plan Last 24 Hours: My Active Orders 08/31/18 08:45 Head wo Cont [CT] Stat 08/31/18 08:46 Cervical Spine wo Cont [CT] Stat 08/31/18 08:47 Max Facial Sinus wo Cont [CT] Stat 08/31/18 11:23 Vaccines to be Administered [RC] PER UNIT ROUTINE
[2018-08-31] MEDS ORDERED: Diphtheria,Pertussis(Acell),Tetanus Vaccine 0.5 ML SDV IM ONE (11:23)
--- NOTE | 2018-09-02 11:09 | CT ---
INDICATION: Fell a few days ago. CT HEAD WITHOUT CONTRAST: Spiral axial imaging of the brain was obtained and compared with 08/31/18, again revealing no evidence of a cranial fracture site. Total exam DLP = 616.74 mGy-cm. Thinning of the lining of the right maxillary antrum is noted with an air fluid level suggested. Frothy material is also present. This suggests the possibility of acute sinusitis in the right maxillary antrum. There is some minimal thickening of the lining anteriorly of the left maxillary antrum and a moderate sized retention cyst in the right maxillary antrum. The paranasal sinuses otherwise appear to be fairly well-aerated with fairly extensive postsurgical changes with resection of sinus granado on the left at the maxillary infundibulum and at ethmoidal sites also. The maxillary infundibulum on the right appears to be at least partly patent. Mastoid air cells appear to be relatively poorly aerated also, raising question of mastoiditis. This appearance is similar to the previous examination, except at the right maxillary antrum, which appears to be demonstrating increased findings for acute sinusitis. Intracranially, no significant interval change is noted, compared with 08/31/18 , with prominent ventricles compatible with central atrophy, minimally prominent cortical sulci suggesting a minimal degree of cortical atrophy, fairly diffuse areas of decreased density in the white matter compatible with moderately severe microvascular disease type changes, and encephalomalacia in the right occipital lobe and posterior parieto-occipital lobe on the left compatible with previous cerebrovascular accidents - correlate clinically. No evidence of a bleeding site, hematoma, or definite acute intracranial abnormality could be identified. Calcifications are noted in the internal carotid arteries. The orbits appear to be intact. IMPRESSION: 1. No acute intracranial abnormality - stable appearance of the brain. 2. Acute sinusitis suggested right maxillary antrum with postsurgical changes in the paranasal sinuses. 3. 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 4. Microvascular disease type changes in the white matter, although other cause of leukoencephalopathy cannot be excluded. 5. Previous infarcts, as noted above. 6. Possible mastoiditis. MTDD
== END 2018-08-31 11:35 | disposition home or self-care (01) ==
LOC: FB.ED 08:33
DX: S01.81XA Laceration without foreign body of other part of head, initial encounter (principal); Z79.899 Other long term (current) drug therapy; Z23 Encounter for immunization; X58.XXXA Exposure to other specified factors, initial encounter
CPT/HCPCS: 12011; 12015; 36415; 70450; 70486; 72125; 80053; 84484; 85025; 85610; 90471; 90715; 99283

== ENCOUNTER 2018-09-02 08:09 | Inpatient (IN) | payer BC, MEDICAID, MEDICARE ==
--- NOTE | 2018-09-02 09:14 | EDM.PDOC ---
ED HPI GENERAL MEDICAL PROBLEM - General Chief Complaint: General Stated Complaint: WEAK Time Seen by Provider: 09/02/18 08:09 Source of Information: Reports: Patient, Family (Brother in Law) History Limitations: Reports: Altered Mental Status - History of Present Illness INITIAL COMMENTS - FREE TEXT/NARRATIVE: 78 y.o.w.m came with his brother in law to the ed after he fell again today. no injuries. Pt was seen here in the ED on Saturday due to a fall onto h9is face, which required surgical repair of his left upper lips. Pt has an unsteady gait, is forget full, lives by himself and is weak, unable to take care of himself. His brother in law is power of research attorney and requested the pt to be admitted to a prison to get his "strength back". No other acute medical issues. BP 112/96 Pulse ox 100% on RA RR 18 Temp 36.9 Pulse 110 Onset Date: 09/01/18 Onset Time: 08:00 Duration: Day(s):, Intermittent Location: Reports: Generalized Quality: Reports: Other (weak, unsteady gait) Improves with: Reports: Rest Worsens with: Reports: Movement Context: Reports: Trauma (fell yesterday and injured his face. ) Associated Symptoms: Reports: Confusion, Weakness L knee Pain Score (Numeric/FACES): 8 - Related Data Allergies Allergy/AdvReac Type Severity Reaction Status Date / Time No Known Allergies Allergy Verified 09/02/18 08:25 Home Meds: Home Meds traZODone HCl [Trazodone HCl] 50 mg PO BEDTIME 10/22/17 [History] Acetaminophen [Tylenol Extra Strength] 1,000 mg PO Q6H PRN 10/23/17 [History] Naproxen Sodium [Aleve] 220 mg PO DAILY 09/02/18 [History] Omeprazole 40 mg PO DAILY 09/02/18 [History] Past Medical History - Past Health History Medical/Surgical History: Denies Medical/Surgical History Cardiovascular History: Reports: Hypertension Gastrointestinal History: Reports: GERD Musculoskeletal History: Reports: Arthritis, Back Pain, Chronic Psychiatric History: Reports: Other (See Below) Other Psychiatric History: IS ALITTLE FORGETFUL, LIKE DATE, SOME PAST EVENTS Dermatologic History: Reports: None Other Dermatologic History: rash - Infectious Disease History Infectious Disease History: Reports: None - Past Surgical History GI Surgical History: Reports: Cholecystectomy, Colonoscopy, Hernia, Abdominal Musculoskeletal Surgical History: Reports: Knee Replacement Other Musculoskeletal Surgeries/Procedures:: L knee replacement Dermatological Surgical History: Reports: Skin Graft, Other (See Below) Social & Family History - Family History Family Medical History: Unobtainable - Tobacco Use Smoking Status *Q: Never Smoker - Caffeine Use Caffeine Use: Reports: Soda, Tea - Alcohol Use Days Per Week of Alcohol Use: 2 Number of Drinks Per Day: 2 Total Drinks Per Week: 4 - Recreational Drug Use Recreational Drug Use: No ED ROS GENERAL - Review of Systems Review Of Systems: Unable To Obtain ED EXAM, GENERAL - Physical Exam Exam: See Below Exam Limited By: Altered Mental Status General Appearance: Alert, Mild Distress, Thin Eye Exam: Bilateral Eye: Normal Inspection (left pupil mild bigger then right pupil. NESTOR) Nose: Normal Inspection, Normal Mucosa Throat/Mouth: Normal Inspection, Normal Voice, No Airway Compromise, Other (S/P lip LAC, repaired yesterday) Head: Normocephalic, Facial Swelling (S/P Lip LAC yesterday, repaired in the ed) Neck: Normal Inspection, Supple, Non-Tender Respiratory/Chest: No Respiratory Distress, Lungs Clear, Normal Breath Sounds ( poor in) Cardiovascular: Normal Peripheral Pulses, Regular Rate, Rhythm, No JVD, No Murmur Peripheral Pulses: 2+: Brachial (L) GI/Abdominal: Normal Bowel Sounds, Soft, Non-Tender, No Organomegaly, No Distention, No Abnormal Bruit, No Mass (Male) Exam: Deferred Rectal (Males) Exam: Deferred Back Exam: Normal Inspection, Full Range of Motion Extremities: Normal Inspection, Normal Range of Motion, Non-Tender, No Pedal Edema Neurological: Alert, CN II-XII Intact, Memory Loss Remote Events, Memory Loss Recent Events, Abnormal Gait Psychiatric: Normal Affect, Normal Mood Skin Exam: Warm, Dry, Wound/Incision (S/P LIP repair after fall) Lymphatic: No Adenopathy EKG INTERPRETATION EKG Date: 09/02/18 Time: 08:55 Rhythm: NSR Rate (Beats/Min): 99 [place]: Normal P-Wave: Present QRS: Normal ST-T: Normal QT: Normal Comparison: NA - No Prior EKG Course - Vital Signs Text/Narrative:: 78 y.o.w.m came with his brother in law to the ed after he fell again today. no injuries. Pt was seen here in the ED on Saturday due to a fall onto h9is face, which required surgical repair of his left upper lips. Pt has an unsteady gait, is forget full, lives by himself and is weak, unable to take care of himself. His brother in law is power of research attorney and requested the pt to be admitted to a prison to get his "strength back". No other acute medical issues. BP 112/96 Pulse ox 100% on RA RR 18 Temp 36.9 Pulse 110 PE: Thin 78 y.o.w.m with h/o frequent falls, weakness, lives by himself. vulnerable adult. Labs: K 3.3 BUN/CR ratio elevated Direct Bili 0.26, otherwie nl CBC, BMP UA: urine bilirubin small Imaging: CT head: NAD CXR: NAD. official reports are pending Impression: Vulnerable adult, Hypokalemia, Dehydration Tx: Potassium, NS 9.34 am Consultation: , Hospitalist: Accepted admission \\ Reexam: Pt was stable in the ED Plan: Admit to [facility] Last Recorded V/S: Last Vital Signs Temp 36.9 C 09/02/18 08:18 Pulse 94 09/02/18 10:12 Resp 18 09/02/18 10:12 BP 148/87 H 09/02/18 10:12 Pulse Ox 98 09/02/18 10:12 Orthostatic Blood Pressure [ 112/84 Standing] Orthostatic Blood Pressure [ 133/96 Sitting] Orthostatic Blood Pressure [ 135/88 Supine] - Orders/Labs/Meds Orders: Active Orders 24 hr Category Date Time Status Sodium Chloride 0.9% [Normal Saline] 1,000 ml Med 09/02/18 09:45 Active IV ASDIRECTED EKG 12 Lead [EK] Routine Ther 09/02/18 08:57 Ordered Medication Orders Sodium Chloride (Normal Saline) 1,000 mls @ 125 mls/hr IV ASDIRECTED DAVID Last Admin: 09/02/18 10:59 Dose: 125 mls/hr Sodium Chloride (Saline Flush) 10 ml FLUSH ASDIRECTED PRN PRN Reason: Keep Vein Open Last Admin: 09/02/18 10:58 Dose: 10 ml Labs: Laboratory Tests 09/02/18 09/02/18 09/02/18 Range/Units 09:04 09:04 09:04 WBC 11.5 (4.5-12.0) X10-3/uL RBC 4.45 (4.30-5.75) x10(6)uL Hgb 13.6 (11.5-15.5) g/dL Hct 41.8 (30.0-51.3) % MCV 93.9 (80-96) fL MCH 30.6 (27.7-33.6) pg MCHC 32.6 (32.2-35.4) g/dL RDW 12.9 (11.5-15.5) % Plt Count 333 (125-369) X10(3)uL MPV 6.8 L (7.4-10.4) fL Neut % (Auto) 80.9 (46-82) % Lymph % (Auto) 9.8 L (13-37) % [place] % (Auto) 8.6 (4-12) % Eos % (Auto) 0 L (1.0-5.0) % Baso % (Auto) 0 (0-2) % Neut # (Auto) 9.4 H (1.6-8.3) # Lymph # (Auto) 1.1 (0.6-5.0) # [place] # (Auto) 1.0 (0.0-1.3) # Eos # (Auto) 0.0 (0.0-0.8) # Baso # (Auto) 0.0 (0.0-0.2) # Sodium 137 (135-145) mmol/L Potassium 3.3 L (3.5-5.3) mmol/L Chloride 100 D (100-110) mmol/L Carbon Dioxide 29 (21-32) mmol/L BUN 22 H (7-18) mg/dL Creatinine 0.9 (0.70-1.30) mg/dL Est Cr Clr Drug Dosing 63.33 mL/min Estimated GFR (MDRD) > 60 (>60) BUN/Creatinine Ratio 24.4 H (9-20) Glucose 126 H (80-116) mg/dL Calcium 9.5 (8.6-10.2) mg/dL Magnesium (1.8-2.5) mg/dL Total Bilirubin 0.7 (0.1-1.3) mg/dL Direct Bilirubin 0.26 H (0.10-0.20) mg/dL AST 21 (5-25) IU/L ALT 22 (12-36) U/L Alkaline Phosphatase 66 (56-112) IU/L Creatine Kinase 129 (60-160) IU/L Troponin I < 0.017 L (<0.017-0.056) ng/mL Total Protein 7.3 (6.0-8.0) g/dL Albumin 3.7 (3.2-4.6) g/dL 09/02/18 Range/Units 09:04 WBC (4.5-12.0) X10-3/uL RBC (4.30-5.75) x10(6)uL Hgb (11.5-15.5) g/dL Hct (30.0-51.3) % MCV (80-96) fL MCH (27.7-33.6) pg MCHC (32.2-35.4) g/dL RDW (11.5-15.5) % Plt Count (125-369) X10(3)uL MPV (7.4-10.4) fL Neut % (Auto) (46-82) % Lymph % (Auto) (13-37) % [place] % (Auto) (4-12) % Eos % (Auto) (1.0-5.0) % Baso % (Auto) (0-2) % Neut # (Auto) (1.6-8.3) # Lymph # (Auto) (0.6-5.0) # [place]oul[place] # (Auto) (0.0-1.3) # Eos # (Auto) (0.0-0.8) # Baso # (Auto) (0.0-0.2) # Sodium (135-145) mmol/L Potassium (3.5-5.3) mmol/L Chloride (100-110) mmol/L Carbon Dioxide (21-32) mmol/L BUN (7-18) mg/dL Creatinine (0.70-1.30) mg/dL Est Cr Clr Drug Dosing mL/min Estimated GFR (MDRD) (>60) BUN/Creatinine Ratio (9-20) Glucose (80-116) mg/dL Calcium (8.6-10.2) mg/dL Magnesium 1.8 (1.8-2.5) mg/dL Total Bilirubin (0.1-1.3) mg/dL Direct Bilirubin (0.10-0.20) mg/dL AST (5-25) IU/L ALT (12-36) U/L Alkaline Phosphatase (56-112) IU/L Creatine Kinase (60-160) IU/L Troponin I (<0.017-0.056) ng/mL Total Protein (6.0-8.0) g/dL Albumin (3.2-4.6) g/dL Meds: Medications Generic Name Dose Route Start Last Admin Trade Name Freq PRN Reason Stop Dose Admin Sodium Chloride 1,000 mls @ 125 mls/hr 09/02/18 09:45 09/02/18 10:59 Normal Saline IV 125 mls/hr ASDIRECTED DAVID Administration Sodium Chloride 10 ml 09/02/18 09:39 09/02/18 10:58 Saline Flush FLUSH 10 ml ASDIRECTED PRN Administration Keep Vein Open Discontinued Medications Generic Name Dose Route Start Last Admin Trade Name Freq PRN Reason Stop Dose Admin Potassium Chloride 40 meq 09/02/18 09:31 09/02/18 10:10 Klor-Con M20 PO 09/02/18 09:32 40 meq ONETIME ONE Administration Departure - Departure Time of Disposition: 11:02 Disposition: Admitted As Inpatient 64 Condition: Fair Clinical Impression: Weakness generalized - Discharge Information - My Orders Last 24 Hours: My Active Orders 09/02/18 08:57 EKG 12 Lead [EK] Routine 09/02/18 09:45 Sodium Chloride 0.9% [Normal Saline] 1,000 ml IV ASDIRECTED - Assessment/Plan Last 24 Hours: My Active Orders 09/02/18 08:57 EKG 12 Lead [EK] Routine 09/02/18 09:45 Sodium Chloride 0.9% [Normal Saline] 1,000 ml IV ASDIRECTED
[2018-09-02] MEDS ORDERED: Potassium Chloride 20 MEQ Tab.ER PO ONE (09:31)
[2018-09-02] MEDS ORDERED: Sodium Chloride 0.9% 10 ML Syringe FLUSH PRN (09:39)
[2018-09-02] MEDS: Sodium Chloride 0.9% 1,000 ML IV SCH ×2 (10:59→19:00)
[2018-09-02] MEDS ORDERED: Acetaminophen 500 MG Tab PO PRN (11:09)
--- NOTE | 2018-09-02 11:20 | CR ---
INDICATION: Post trauma. CHEST: PA and lateral views of the chest were obtained 09/02/18 - no comparisons. The heart is normal in size and shape. The aorta is tortuous with some minimal calcifications suggested. Minimal degenerative changes are noted in the thoracic spine. An active infiltrate or effusion was not identified. IMPRESSION: No acute process. MTDD
--- NOTE | 2018-09-02 14:01 | PCM.HP ---
H&P History of Present Illness - General Date of Service: 09/02/18 Admit Problem/Dx: Admission Diagnosis/Problem Admission Diagnosis/Problem Falls Source of Information: Patient, Family - History of Present Illness Initial Comments - Free Text/Narative: This is an 78-year-old gentleman who lives by himself. In the last 2 weeks he' s had multiple falls. He states he does need to remember any of the falls although he's had a laceration on the left face. He says he can walk but it's difficult. He's not been ill. He denies diplopia, blurred vision, fevers, chills, cough, chest pain dysuria, pyuria, hematuria, lateralizing weakness, dysphagia, aphasia. He was seen in the ER last night and had a head CT was negative. He was brought by his [id number] who is power of patent prosecution attorney states he is unsafe at home consist falling all the time. L knee Pain Score (Numeric/FACES): 8 - Related Data Allergies/Adverse Reactions: Allergies Allergy/AdvReac Type Severity Reaction Status Date / Time No Known Allergies Allergy Verified 09/02/18 08:25 Home Medications: Home Meds traZODone HCl [Trazodone HCl] 50 mg PO BEDTIME 10/22/17 [History] Acetaminophen [Tylenol Extra Strength] 1,000 mg PO Q6H PRN 10/23/17 [History] Naproxen Sodium [Aleve] 220 mg PO DAILY 09/02/18 [History] Omeprazole 40 mg PO DAILY 09/02/18 [History] Past Medical History - Past Health History Medical/Surgical History: Denies Medical/Surgical History Cardiovascular History: Reports: Hypertension Gastrointestinal History: Reports: GERD Musculoskeletal History: Reports: Arthritis, Back Pain, Chronic Psychiatric History: Reports: Other (See Below) Other Psychiatric History: IS ALITTLE FORGETFUL, LIKE DATE, SOME PAST EVENTS Dermatologic History: Reports: None Other Dermatologic History: rash - Infectious Disease History Infectious Disease History: Reports: None - Past Surgical History GI Surgical History: Reports: Cholecystectomy, Colonoscopy, Hernia, Abdominal Musculoskeletal Surgical History: Reports: Knee Replacement Other Musculoskeletal Surgeries/Procedures:: L knee replacement Dermatological Surgical History: Reports: Skin Graft, Other (See Below) Social & Family History - Family History Family Medical History: Unobtainable - Tobacco Use Smoking Status *Q: Never Smoker Second Hand Smoke Exposure: No - Caffeine Use Caffeine Use: Reports: Soda, Tea Caffeine Use Comment: Drinks a couple cans of pepsi a day. - Alcohol Use Days Per Week of Alcohol Use: 2 Number of Drinks Per Day: 2 Total Drinks Per Week: 4 Date of Last Drink: 08/13/18 Time of Last Drink: 17:00 - Recreational Drug Use Recreational Drug Use: No H&P Review of Systems - Review of Systems: Review Of Systems: See Below General: Reports: Weakness HEENT: Reports: No Symptoms Pulmonary: Reports: No Symptoms Cardiovascular: Reports: No Symptoms Gastrointestinal: Reports: No Symptoms Genitourinary: Reports: No Symptoms Musculoskeletal: Reports: No Symptoms Skin: Reports: No Symptoms Psychiatric: Reports: No Symptoms Neurological: Reports: Other (Frequent falls) Hematologic/Lymphatic: Reports: No Symptoms Immunologic: Reports: No Symptoms Exam - Exam Exam: See Below - Vital Signs Vital Signs: Last Vital Signs Temp 98.3 F 09/02/18 11:30 Pulse 64 09/02/18 11:30 Resp 14 09/02/18 11:30 BP 139/81 09/02/18 11:30 Pulse Ox 98 09/02/18 12:25 Orthostatic Blood Pressure [ 112/84 Standing] Orthostatic Blood Pressure [ 133/96 Sitting] Orthostatic Blood Pressure [ 135/88 Supine] Weight: 148 lb 4.8 oz - Exam General: Alert, Oriented, Cooperative HEENT: Hearing Intact, Mucosa Moist & [place], Posterior Pharynx Clear Neck: Supple, Trachea Midline Lungs: Clear to Auscultation Cardiovascular: Regular Rate, Regular Rhythm. No: Irregular Rhythm GI/Abdominal Exam: Normal Bowel Sounds, Soft, Non-Tender, No Distention, No Abnormal Bruit, No Mass Back Exam: Normal Inspection, Full Range of Motion Extremities: Normal Range of Motion, Non-Tender, No Pedal Edema Skin: Warm, Dry, Other (Abrasion left face over the zygomatic process) Neurological: Normal Speech, Normal Tone Neuro Extensive - Mental Status: Alert, Oriented x3, Normal Mood/Affect Neuro Extensive - Motor, Sensory, Reflexes: Other (Shuffles when he walks) Psychiatric: Alert, Normal Affect, Anxious - Patient Data Lab Results Last 24 hrs: Laboratory Results - last 24 hr 09/02/18 09/02/18 09/02/18 Range/Units 09:04 09:04 09:04 WBC 11.5 (4.5-12.0) X10-3/uL RBC 4.45 (4.30-5.75) x10(6)uL Hgb 13.6 (11.5-15.5) g/dL Hct 41.8 (30.0-51.3) % MCV 93.9 (80-96) fL MCH 30.6 (27.7-33.6) pg MCHC 32.6 (32.2-35.4) g/dL RDW 12.9 (11.5-15.5) % Plt Count 333 (125-369) X10(3)uL MPV 6.8 L (7.4-10.4) fL Neut % (Auto) 80.9 (46-82) % Lymph % (Auto) 9.8 L (13-37) % [place] % (Auto) 8.6 (4-12) % Eos % (Auto) 0 L (1.0-5.0) % Baso % (Auto) 0 (0-2) % Neut # (Auto) 9.4 H (1.6-8.3) # Lymph # (Auto) 1.1 (0.6-5.0) # [place] # (Auto) 1.0 (0.0-1.3) # Eos # (Auto) 0.0 (0.0-0.8) # Baso # (Auto) 0.0 (0.0-0.2) # Sodium 137 (135-145) mmol/L Potassium 3.3 L (3.5-5.3) mmol/L Chloride 100 D (100-110) mmol/L Carbon Dioxide 29 (21-32) mmol/L BUN 22 H (7-18) mg/dL Creatinine 0.9 (0.70-1.30) mg/dL Est Cr Clr Drug Dosing 63.33 mL/min Estimated GFR (MDRD) > 60 (>60) BUN/Creatinine Ratio 24.4 H (9-20) Glucose 126 H (80-116) mg/dL Calcium 9.5 (8.6-10.2) mg/dL Magnesium (1.8-2.5) mg/dL Total Bilirubin 0.7 (0.1-1.3) mg/dL Direct Bilirubin 0.26 H (0.10-0.20) mg/dL AST 21 (5-25) IU/L ALT 22 (12-36) U/L Alkaline Phosphatase 66 (56-112) IU/L Creatine Kinase 129 (60-160) IU/L Troponin I < 0.017 L (<0.017-0.056) ng/mL Total Protein 7.3 (6.0-8.0) g/dL Albumin 3.7 (3.2-4.6) g/dL Urine Color (YELLOW) Urine Appearance (CLEAR) Urine pH (5.0-6.5) Ur Specific [place] (1.010-1.025) Urine Protein (NEGATIVE) mg/dL Urine Glucose (UA) (NEGATIVE) mg/dL Urine Ketones (NEGATIVE) mg/dL Urine Occult Blood (NEGATIVE) Urine Nitrite (NEGATIVE) Urine Bilirubin (NEGATIVE) Urine Urobilinogen (NEGATIVE) mg/dL Ur Leukocyte Esterase (NEGATIVE) Urine RBC (0) Urine WBC (0) Ur Squamous Epith Cells (NS,R,O) Urine Bacteria (NS) Urine Mucus (NS) 09/02/18 09/02/18 Range/Units 09:04 09:45 WBC (4.5-12.0) X10-3/uL RBC (4.30-5.75) x10(6)uL Hgb (11.5-15.5) g/dL Hct (30.0-51.3) % MCV (80-96) fL MCH (27.7-33.6) pg MCHC (32.2-35.4) g/dL RDW (11.5-15.5) % Plt Count (125-369) X10(3)uL MPV (7.4-10.4) fL Neut % (Auto) (46-82) % Lymph % (Auto) (13-37) % [place] % (Auto) (4-12) % Eos % (Auto) (1.0-5.0) % Baso % (Auto) (0-2) % Neut # (Auto) (1.6-8.3) # Lymph # (Auto) (0.6-5.0) # [place] # (Auto) (0.0-1.3) # Eos # (Auto) (0.0-0.8) # Baso # (Auto) (0.0-0.2) # Sodium (135-145) mmol/L Potassium (3.5-5.3) mmol/L Chloride (100-110) mmol/L Carbon Dioxide (21-32) mmol/L BUN (7-18) mg/dL Creatinine (0.70-1.30) mg/dL Est Cr Clr Drug Dosing mL/min Estimated GFR (MDRD) (>60) BUN/Creatinine Ratio (9-20) Glucose (80-116) mg/dL Calcium (8.6-10.2) mg/dL Magnesium 1.8 (1.8-2.5) mg/dL Total Bilirubin (0.1-1.3) mg/dL Direct Bilirubin (0.10-0.20) mg/dL AST (5-25) IU/L ALT (12-36) U/L Alkaline Phosphatase (56-112) IU/L Creatine Kinase (60-160) IU/L Troponin I (<0.017-0.056) ng/mL Total Protein (6.0-8.0) g/dL Albumin (3.2-4.6) g/dL Urine Color [place] (YELLOW) Urine Appearance Clear (CLEAR) Urine pH 6.5 (5.0-6.5) Ur Specific [place] 1.015 (1.010-1.025) Urine Protein Negative (NEGATIVE) mg/dL Urine Glucose (UA) Normal (NEGATIVE) mg/dL Urine Ketones Negative (NEGATIVE) mg/dL Urine Occult Blood Negative (NEGATIVE) Urine Nitrite Negative (NEGATIVE) Urine Bilirubin Small H (NEGATIVE) Urine Urobilinogen 1 H (NEGATIVE) mg/dL Ur Leukocyte Esterase Negative (NEGATIVE) Urine RBC 0-5 (0) Urine WBC 0-5 (0) Ur Squamous Epith Cells Occasional (NS,R,O) Urine Bacteria Few H (NS) Urine Mucus Many H (NS) Result Diagrams: 09/02/18 09:04 09/02/18 09:04 - Problem List (1) Frequent falls SNOMED Code(s): 422550283 ICD Code: R29.6 - REPEATED FALLS Status: Acute Current Visit: Yes (2) Palliative care status SNOMED Code(s): 003227274 ICD Code: Z51.5 - ENCOUNTER FOR PALLIATIVE CARE Status: Acute Current Visit: Yes (3) Weakness generalized SNOMED Code(s): 47562688 ICD Code: R53.1 - WEAKNESS Status: Acute Current Visit: Yes (4) Dehydration SNOMED Code(s): 30029114 ICD Code: E86.0 - DEHYDRATION Status: Acute Current Visit: No (5) Laceration of face SNOMED Code(s): 402977967 ICD Code: S01.81XA - LACERATION W/O FOREIGN BODY OF OTH PART OF HEAD, INIT ENCNTR Status: Acute Current Visit: No Qualifiers: Encounter type: initial encounter Qualified Code(s): S01.81XA - Laceration without foreign body of other part of head, initial encounter (6) Mental status change SNOMED Code(s): 070994155 ICD Code: R41.82 - ALTERED MENTAL STATUS, UNSPECIFIED Status: Acute Current Visit: No (7) Hypokalemia SNOMED Code(s): 82768346 ICD Code: E87.6 - HYPOKALEMIA Status: Acute Current Visit: Yes Problem List Initiated/Reviewed/Updated: Yes Orders Last 24hrs: Active Orders 24 hr Category Date Time Status Patient Status [ADT] Routine ADT 09/02/18 09:39 Active Oxygen Therapy [RC] PRN Care 09/02/18 09:39 Active Up With Assistance [RC] ASDIRECTED Care 09/02/18 09:39 Active VTE/DVT Education [RC] Per Unit Routine Care 09/02/18 09:39 Active Vital Signs [RC] Q4H Care 09/02/18 09:39 Active Consult to Occupational Therapy [OT Evaluation and Cons 09/02/18 11:09 Active Treatment] [CONS] Routine Consult to Physical Therapy [PT Evaluation and Cons 09/02/18 11:09 Active Treatment] [CONS] Routine Regular Diet [DIET] Diet 09/02/18 Breakfast Active Acetaminophen [Tylenol Extra Strength] Med 09/02/18 11:09 Active 1,000 mg PO Q6H PRN Pantoprazole [ProTONIX] Med 09/03/18 06:00 Active 40 mg PO DAILY@0600 Sodium Chloride 0.9% [Normal Saline] 1,000 ml Med 09/02/18 09:45 Active IV ASDIRECTED Sodium Chloride 0.9% [Saline Flush] Med 09/02/18 09:39 Active 10 ml FLUSH ASDIRECTED PRN traZODone Med 09/02/18 21:00 Active 50 mg PO BEDTIME Peripheral IV Insertion Adult [OM.PC] Routine Oth 09/02/18 09:39 Ordered Resuscitation Status Routine Resus Stat 09/02/18 09:39 Ordered EKG 12 Lead [EK] Routine Ther 09/02/18 08:57 Ordered Medication Orders Acetaminophen (Tylenol Extra Strength) 1,000 mg PO Q6H PRN PRN Reason: Pain Sodium Chloride (Normal Saline) 1,000 mls @ 125 mls/hr IV ASDIRECTED DAVID Last Admin: 09/02/18 10:59 Dose: 125 mls/hr Pantoprazole Sodium (Protonix) 40 mg PO DAILY@0600 [facility] Sodium Chloride (Saline Flush) 10 ml FLUSH ASDIRECTED PRN PRN Reason: Keep Vein Open Last Admin: 09/02/18 10:58 Dose: 10 ml Trazodone HCl (Trazodone) 50 mg PO BEDTIME [facility] Assessment/Plan Comment:: 1. Admit to the floor 2. PT/OT/director social service 3. Regular diet 4. Up with assist. 5. CT of the head and a chest x-ray per ER doctor. 6. When they're done and there is no bleeding the brain proceed with VTE [place] axis with Lovenox and SCD 7. Potassium was slightly low so given some potassium today.
[2018-09-02] MEDS ORDERED: Enoxaparin 40 MG/0.4 ML Syringe SUBCUT SCH (16:00)
[2018-09-02] MEDS ORDERED: traZODone 50 MG Tab PO SCH (21:00)
[2018-09-02] MEDS ORDERED: Docusate Sodium 100 MG Cap PO ONE (21:58)
[2018-09-03] MEDS: Sodium Chloride 0.9% 1,000 ML IV SCH (03:03)
[2018-09-03] MEDS ORDERED: Pantoprazole 40 MG Tab.CR PO SCH (06:00)
[2018-09-03] MEDS ORDERED: Amoxicillin/Clavulanate K 875-125 MG Tab PO SCH (08:30)
--- NOTE | 2018-09-03 08:35 | PCM.PN ---
- General Info Date of Service: 09/03/18 Admission Dx/Problem (Free Text): Patient has no complaints today. Says he does have some nasal congestion but no ear pain, sore throat, fevers or chills. Says his strength is good and is eating well. - Patient Data Vitals - Most Recent: Last Vital Signs Temp 98.2 F 09/03/18 04:00 Pulse 82 09/03/18 04:00 Resp 18 09/03/18 04:00 BP 112/78 09/03/18 04:00 Pulse Ox 98 09/03/18 04:00 Orthostatic Blood Pressure [ 112/84 Standing] Orthostatic Blood Pressure [ 133/96 Sitting] Orthostatic Blood Pressure [ 135/88 Supine] Weight - Most Recent: 148 lb 4.8 oz Lab Results Last 24 Hours: Laboratory Results - last 24 hr 09/02/18 09/02/18 09/02/18 Range/Units 09:04 09:04 09:04 WBC 11.5 (4.5-12.0) X10-3/uL RBC 4.45 (4.30-5.75) x10(6)uL Hgb 13.6 (11.5-15.5) g/dL Hct 41.8 (30.0-51.3) % MCV 93.9 (80-96) fL MCH 30.6 (27.7-33.6) pg MCHC 32.6 (32.2-35.4) g/dL RDW 12.9 (11.5-15.5) % Plt Count 333 (125-369) X10(3)uL MPV 6.8 L (7.4-10.4) fL Neut % (Auto) 80.9 (46-82) % Lymph % (Auto) 9.8 L (13-37) % [place] % (Auto) 8.6 (4-12) % Eos % (Auto) 0 L (1.0-5.0) % Baso % (Auto) 0 (0-2) % Neut # (Auto) 9.4 H (1.6-8.3) # Lymph # (Auto) 1.1 (0.6-5.0) # [place] # (Auto) 1.0 (0.0-1.3) # Eos # (Auto) 0.0 (0.0-0.8) # Baso # (Auto) 0.0 (0.0-0.2) # Sodium 137 (135-145) mmol/L Potassium 3.3 L (3.5-5.3) mmol/L Chloride 100 D (100-110) mmol/L Carbon Dioxide 29 (21-32) mmol/L BUN 22 H (7-18) mg/dL Creatinine 0.9 (0.70-1.30) mg/dL Est Cr Clr Drug Dosing 63.33 mL/min Estimated GFR (MDRD) > 60 (>60) BUN/Creatinine Ratio 24.4 H (9-20) Glucose 126 H (80-116) mg/dL Calcium 9.5 (8.6-10.2) mg/dL Magnesium (1.8-2.5) mg/dL Total Bilirubin 0.7 (0.1-1.3) mg/dL Direct Bilirubin 0.26 H (0.10-0.20) mg/dL AST 21 (5-25) IU/L ALT 22 (12-36) U/L Alkaline Phosphatase 66 (56-112) IU/L Creatine Kinase 129 (60-160) IU/L Troponin I < 0.017 L (<0.017-0.056) ng/mL Total Protein 7.3 (6.0-8.0) g/dL Albumin 3.7 (3.2-4.6) g/dL Urine Color (YELLOW) Urine Appearance (CLEAR) Urine pH (5.0-6.5) Ur Specific [place] (1.010-1.025) Urine Protein (NEGATIVE) mg/dL Urine Glucose (UA) (NEGATIVE) mg/dL Urine Ketones (NEGATIVE) mg/dL Urine Occult Blood (NEGATIVE) Urine Nitrite (NEGATIVE) Urine Bilirubin (NEGATIVE) Urine Urobilinogen (NEGATIVE) mg/dL Ur Leukocyte Esterase (NEGATIVE) Urine RBC (0) Urine WBC (0) Ur Squamous Epith Cells (NS,R,O) Urine Bacteria (NS) Urine Mucus (NS) 09/02/18 09/02/18 09/03/18 Range/Units 09:04 09:45 06:11 WBC (4.5-12.0) X10-3/uL RBC (4.30-5.75) x10(6)uL Hgb (11.5-15.5) g/dL Hct (30.0-51.3) % MCV (80-96) fL MCH (27.7-33.6) pg MCHC (32.2-35.4) g/dL RDW (11.5-15.5) % Plt Count (125-369) X10(3)uL MPV (7.4-10.4) fL Neut % (Auto) (46-82) % Lymph % (Auto) (13-37) % [place] % (Auto) (4-12) % Eos % (Auto) (1.0-5.0) % Baso % (Auto) (0-2) % Neut # (Auto) (1.6-8.3) # Lymph # (Auto) (0.6-5.0) # [place] # (Auto) (0.0-1.3) # Eos # (Auto) (0.0-0.8) # Baso # (Auto) (0.0-0.2) # Sodium 140 (135-145) mmol/L Potassium 4.0 (3.5-5.3) mmol/L Chloride 107 D (100-110) mmol/L Carbon Dioxide 27 (21-32) mmol/L BUN 18 (7-18) mg/dL Creatinine 0.7 (0.70-1.30) mg/dL Est Cr Clr Drug Dosing 80.08 mL/min Estimated GFR (MDRD) > 60 (>60) BUN/Creatinine Ratio 25.7 H (9-20) Glucose 90 (80-116) mg/dL Calcium 8.3 L (8.6-10.2) mg/dL Magnesium 1.8 (1.8-2.5) mg/dL Total Bilirubin (0.1-1.3) mg/dL Direct Bilirubin (0.10-0.20) mg/dL AST (5-25) IU/L ALT (12-36) U/L Alkaline Phosphatase (56-112) IU/L Creatine Kinase (60-160) IU/L Troponin I (<0.017-0.056) ng/mL Total Protein (6.0-8.0) g/dL Albumin (3.2-4.6) g/dL Urine Color [place] (YELLOW) Urine Appearance Clear (CLEAR) Urine pH 6.5 (5.0-6.5) Ur Specific [place] 1.015 (1.010-1.025) Urine Protein Negative (NEGATIVE) mg/dL Urine Glucose (UA) Normal (NEGATIVE) mg/dL Urine Ketones Negative (NEGATIVE) mg/dL Urine Occult Blood Negative (NEGATIVE) Urine Nitrite Negative (NEGATIVE) Urine Bilirubin Small H (NEGATIVE) Urine Urobilinogen 1 H (NEGATIVE) mg/dL Ur Leukocyte Esterase Negative (NEGATIVE) Urine RBC 0-5 (0) Urine WBC 0-5 (0) Ur Squamous Epith Cells Occasional (NS,R,O) Urine Bacteria Few H (NS) Urine Mucus Many H (NS) Med Orders - Current: Current Medications Acetaminophen (Tylenol Extra Strength) 1,000 mg PO Q6H PRN PRN Reason: Pain Last Admin: 09/02/18 17:08 Dose: 1,000 mg Amoxicillin/Clavulanate Potassium (Augmentin 875 Mg/125 Mg) 1 tab PO Q12HR [facility] Stop: 09/22/18 08:31 Docusate Sodium (Colace) 100 mg PO DAILY [facility] Enoxaparin Sodium (Lovenox) 40 mg SUBCUT Q24H [facility] Last Admin: 09/02/18 17:08 Dose: 40 mg Pantoprazole Sodium (Protonix) 40 mg PO DAILY@0600 [facility] Last Admin: 09/03/18 06:40 Dose: 40 mg Sodium Chloride (Saline Flush) 10 ml FLUSH ASDIRECTED PRN PRN Reason: Keep Vein Open Last Admin: 09/02/18 10:58 Dose: 10 ml Trazodone HCl (Trazodone) 50 mg PO BEDTIME [facility] Last Admin: 09/02/18 19:59 Dose: 50 mg Discontinued Medications Docusate Sodium (Colace) 100 mg PO ONETIME ONE Stop: 09/02/18 21:59 Last Admin: 09/02/18 22:20 Dose: 100 mg Sodium Chloride (Normal Saline) 1,000 mls @ 125 mls/hr IV ASDIRECTED [facility] Last Admin: 09/03/18 03:03 Dose: 125 mls/hr Potassium Chloride (Klor-Con M20) 40 meq PO ONETIME ONE Stop: 09/02/18 09:32 Last Admin: 09/02/18 10:10 Dose: 40 meq - Exam General: Alert, Oriented, Cooperative HEENT: Other (Ears including TMs are normal bilateral.) Neck: Supple Lungs: Clear to Auscultation, Normal Respiratory Effort Cardiovascular: Regular Rate, Regular Rhythm, No Murmurs Extremities: Normal Range of Motion, No Pedal Edema Wound/Incisions: Other (Wound left upper lip with sutures in place.) Neurological: No New Focal Deficit Psy/Mental Status: Alert, Normal Affect, Normal Mood - Problem List & Annotations (1) Frequent falls SNOMED Code(s): 528059849 Code(s): R29.6 - REPEATED FALLS Status: Acute Current Visit: Yes (2) Palliative care status SNOMED Code(s): 449501831 Code(s): Z51.5 - ENCOUNTER FOR PALLIATIVE CARE Status: Acute Current Visit: Yes (3) Weakness generalized SNOMED Code(s): 38850969 Code(s): R53.1 - WEAKNESS Status: Acute Current Visit: Yes (4) Dehydration SNOMED Code(s): 02622368 Code(s): E86.0 - DEHYDRATION Status: Acute Current Visit: No (5) Laceration of face SNOMED Code(s): 913669083 Code(s): S01.81XA - LACERATION W/O FOREIGN BODY OF OTH PART OF HEAD, INIT ENCNTR Status: Acute Current Visit: No Qualifiers: Encounter type: initial encounter Qualified Code(s): S01.81XA - Laceration without foreign body of other part of head, initial encounter (6) Mental status change SNOMED Code(s): 401938828 Code(s): R41.82 - ALTERED MENTAL STATUS, UNSPECIFIED Status: Acute Current Visit: No (7) Hypokalemia SNOMED Code(s): 45989426 Code(s): E87.6 - HYPOKALEMIA Status: Acute Current Visit: Yes (8) Laceration of face SNOMED Code(s): 887909364 Code(s): S01.81XA - LACERATION W/O FOREIGN BODY OF OTH PART OF HEAD, INIT ENCNTR Status: Acute Current Visit: Yes (9) Sinusitis, maxillary, chronic SNOMED Code(s): 48098433 Code(s): J32.0 - CHRONIC MAXILLARY SINUSITIS Status: Acute Current Visit : Yes - Problem List Review Problem List Initiated/Reviewed/Updated: Yes - My Orders Last 24 Hours: My Active Orders 09/02/18 11:09 Consult to Occupational Therapy [OT Evaluation and Treatment] [CONS] Routine Consult to Physical Therapy [PT Evaluation and Treatment] [CONS] Routine Acetaminophen [Tylenol Extra Strength] 1,000 mg PO Q6H PRN 09/02/18 14:03 Consult to Case Management/Merchant Mill Utility Worker [CONS] Routine SCD [Sequential Compression Device] [OM.PC] Routine 09/02/18 16:00 Enoxaparin [Lovenox] 40 mg SUBCUT Q24H 09/02/18 21:00 traZODone 50 mg PO BEDTIME 09/03/18 06:00 Pantoprazole [ProTONIX] 40 mg PO DAILY@0600 09/03/18 08:28 Convert IV to Saline Lock [OM.PC] Routine 09/03/18 08:30 Amoxicillin/Clavulanate K [Augmentin 875 MG/125 MG] 1 tab PO Q12HR - Plan Plan:: 1. 1. DC IV fluids and saline lock IV. 2. PT/OT. 3. accounting advisory services manager to see. 4. Start Augmentin 875 twice a day for chronic sinusitis per CT. No signs of mastoiditis clinically.
[2018-09-03] MEDS ORDERED: Docusate Sodium 100 MG Cap PO SCH (09:00)
--- NOTE | 2018-09-03 17:45 | PCM.SN ---
- Free Text/Narrative Note: Patient is stable, oriented 3 and walking well. PT did not pick him up. He does not want to go to skilled care. We'll discharge him home on home health/PT/ OT.
--- NOTE | 2018-09-03 17:47 | PCM.DCSUM1 ---
Discharge Summary - Hospital Course Free Text/Narrative:: Hospital course-patient was put on some IV fluids and given some potassium. Potassium corrected by the next morning. Patient did well was up walking eating and drinking. Is oriented 3 with no problems. He was evaluated by PT/OT the next day and they did not pick him up because he was doing so well. We discussed placement in assisted living and he does not want that. His power of mirror specialist wants him to be there but he does not want to go. So after the assessment we talked to him and will send him home with home health/PT/OT evaluation. He has a laceration his upper lip and his sutures should be removed in 5 days. Brief History: This is an 78-year-old gentleman who lives by himself. In the last 2 weeks he's had multiple falls. He states he does need to remember any of the falls although he's had a laceration on the left face. He says he can walk but it's difficult. He's not been ill. He denies diplopia, blurred vision , fevers, chills, cough, chest pain dysuria, pyuria, hematuria, lateralizing weakness, dysphagia, aphasia. He was seen in the ER last night and had a head CT was negative. He was brought by his [id number] who is power of mirror specialist states he is unsafe at home consist falling all the time. Diagnosis: Stroke: No - Discharge Data Discharge Date: 09/03/18 Discharge Disposition: Home, Self-Care 01 Condition: Good - Discharge Diagnosis/Problem(s) (1) Frequent falls SNOMED Code(s): 655911008 ICD Code: R29.6 - REPEATED FALLS Status: Acute (2) Palliative care status SNOMED Code(s): 733768964 ICD Code: Z51.5 - ENCOUNTER FOR PALLIATIVE CARE Status: Acute (3) Weakness generalized SNOMED Code(s): 26799989 ICD Code: R53.1 - WEAKNESS Status: Acute (4) Dehydration SNOMED Code(s): 34479421 ICD Code: E86.0 - DEHYDRATION Status: Acute (5) Laceration of face SNOMED Code(s): 297385718 ICD Code: S01.81XA - LACERATION W/O FOREIGN BODY OF OTH PART OF HEAD, INIT ENCNTR Status: Acute Qualifiers: Encounter type: initial encounter Qualified Code(s): S01.81XA - Laceration without foreign body of other part of head, initial encounter (6) Mental status change SNOMED Code(s): 702824213 ICD Code: R41.82 - ALTERED MENTAL STATUS, UNSPECIFIED Status: Acute (7) Hypokalemia SNOMED Code(s): 72380462 ICD Code: E87.6 - HYPOKALEMIA Status: Acute (8) Laceration of face SNOMED Code(s): 555445261 ICD Code: S01.81XA - LACERATION W/O FOREIGN BODY OF OTH PART OF HEAD, INIT ENCNTR Status: Acute (9) Sinusitis, maxillary, chronic SNOMED Code(s): 71035348 ICD Code: J32.0 - CHRONIC MAXILLARY SINUSITIS Status: Acute (10) Concussion SNOMED Code(s): 350723830 ICD Code: S06.0X9A - CONCUSSION W LOSS OF CONSCIOUSNESS OF UNSP DURATION, INIT Status: Acute - Patient Summary/Data Consults: Consultations 09/02/18 11:09 Consult to Occupational Therapy [OT Evaluation and Treatment] [CONS] Routine Please Evaluate and Treat. OT Reason for Consult: Strengthening This query below is only for informational purposes and is not editable. Admission Diagnosis/Problem: Falls Consult to Physical Therapy [PT Evaluation and Treatment] [CONS] Routine Please Evaluate and Treat. PT Reason for Consult: Strengthening This query below is only for informational purposes and is not editable. Admission Diagnosis/Problem: Falls 09/02/18 14:03 Consult to Case Management/Cementing Bulk Material Operator [CONS] Routine Comment: Physician Instructions: Service(s) to be Consulted: Cementing Bulk Material Operator - Patient Instructions Diet: Regular Diet as Tolerated Activity: As Tolerated Driving: Do Not Drive Showering/Bathing: May Shower Other/Special Instructions: 1. Discharge to home with home health/PT/OT. This for home safety, disease teaching, medication management, physical therapy for strengthening and OT for ADLs. 2. Recheck with Dr. Weir in 2 days for recheck and suture removal of the laceration on his face. - Discharge Plan Prescriptions/Med Rec: Amoxicillin/Clavulanate K [Augmentin 875-125 MG] 1 tab PO Q12H #19 tablet Home Medications: Home Meds traZODone HCl [Trazodone HCl] 50 mg PO BEDTIME 10/22/17 [History] Acetaminophen [Tylenol Extra Strength] 1,000 mg PO Q6H PRN 10/23/17 [History] Naproxen Sodium [Aleve] 220 mg PO DAILY 09/02/18 [History] Omeprazole 40 mg PO DAILY 09/02/18 [History] Amoxicillin/Clavulanate K [Augmentin 875-125 MG] 1 tab PO Q12H #19 tablet [Rx] Patient Handouts: Amoxicillin; Clavulanic Acid tablets, Sinusitis, Adult, Easy- to-Read, Venous Thromboembolism Prevention Forms: ED Department Discharge Referrals: Adarsh Weir MD [Primary Care Provider] - - Discharge Summary/Plan Comment DC Time >30 min.: No - Patient Data Vitals - Most Recent: Last Vital Signs Temp 99.4 F 09/03/18 08:00 Pulse 61 09/03/18 08:00 Resp 16 09/03/18 08:00 BP 133/86 09/03/18 08:00 Pulse Ox 95 09/03/18 08:00 Orthostatic Blood Pressure [ 112/84 Standing] Orthostatic Blood Pressure [ 133/96 Sitting] Orthostatic Blood Pressure [ 135/88 Supine] Weight - Most Recent: 148 lb 4.8 oz Lab Results - Last 24 hrs: Laboratory Results - last 24 hr 09/03/18 Range/Units 06:11 Sodium 140 (135-145) mmol/L Potassium 4.0 (3.5-5.3) mmol/L Chloride 107 D (100-110) mmol/L Carbon Dioxide 27 (21-32) mmol/L BUN 18 (7-18) mg/dL Creatinine 0.7 (0.70-1.30) mg/dL Est Cr Clr Drug Dosing 80.08 mL/min Estimated GFR (MDRD) > 60 (>60) BUN/Creatinine Ratio 25.7 H (9-20) Glucose 90 (80-116) mg/dL Calcium 8.3 L (8.6-10.2) mg/dL Med Orders - Current: Current Medications Discontinued Medications Acetaminophen (Tylenol Extra Strength) 1,000 mg PO Q6H PRN PRN Reason: Pain Last Admin: 09/02/18 17:08 Dose: 1,000 mg Amoxicillin/Clavulanate Potassium (Augmentin 875 Mg/125 Mg) 1 tab PO Q12H [facility] Stop: 09/12/18 20:31 Last Admin: 09/03/18 10:01 Dose: 1 tab Docusate Sodium (Colace) 100 mg PO ONETIME ONE Stop: 09/02/18 21:59 Last Admin: 09/02/18 22:20 Dose: 100 mg Docusate Sodium (Colace) 100 mg PO DAILY [facility] Last Admin: 09/03/18 10:01 Dose: 100 mg Enoxaparin Sodium (Lovenox) 40 mg SUBCUT Q24H [facility] Last Admin: 09/02/18 17:08 Dose: 40 mg Sodium Chloride (Normal Saline) 1,000 mls @ 125 mls/hr IV ASDIRECTED [facility] Last Admin: 09/03/18 03:03 Dose: 125 mls/hr Pantoprazole Sodium (Protonix) 40 mg PO DAILY@0600 [facility] Last Admin: 09/03/18 06:40 Dose: 40 mg Potassium Chloride (Klor-Con M20) 40 meq PO ONETIME ONE Stop: 09/02/18 09:32 Last Admin: 09/02/18 10:10 Dose: 40 meq Sodium Chloride (Saline Flush) 10 ml FLUSH ASDIRECTED PRN PRN Reason: Keep Vein Open Last Admin: 09/02/18 10:58 Dose: 10 ml Trazodone HCl (Trazodone) 50 mg PO BEDTIME [facility] Last Admin: 09/02/18 19:59 Dose: 50 mg
== END 2018-09-03 13:18 | disposition home health service (06) | DRG 92 ==
LOC: FB.ED 08:09 → FB.MS 09:37
PROVIDERS: ADMIT Family Medicine; ATTEND Family Medicine
DX: R29.6 Repeated falls (principal); E86.0 Dehydration; S06.0X9A Concussion with loss of consciousness of unspecified duration, initial encounter; R53.1 Weakness; Z51.5 Encounter for palliative care; I10 Essential (primary) hypertension; R41.82 Altered mental status, unspecified; E87.6 Hypokalemia; S01.81XA Laceration without foreign body of other part of head, initial encounter; R26.81 Unsteadiness on feet; W19.XXXA Unspecified fall, initial encounter; Y92.009 Unspecified place in unspecified non-institutional (private) residence as the place of occurrence of the external cause; Z91.81 History of falling; J32.0 Chronic maxillary sinusitis; K21.9 Gastro-esophageal reflux disease without esophagitis; M19.90 Unspecified osteoarthritis, unspecified site; M54.9 Dorsalgia, unspecified; G89.29 Other chronic pain; Z96.652 Presence of left artificial knee joint; Z90.49 Acquired absence of other specified parts of digestive tract
CPT/HCPCS: 36415; 70450; 71046; 80048; 80076; 81001; 82550; 83735; 84484; 85025; 93005; 97165-GO; 99285; A9270-GY; J1650; J7030

== ENCOUNTER 2019-03-09 06:53 | Emergency (ER) | payer MEDICARE ==
--- NOTE | 2019-03-09 08:00 | EDM.PDOC ---
ED HPI GENERAL MEDICAL PROBLEM - General Chief Complaint: General Stated Complaint: NO APPETITE,WEAKNESS Time Seen by Provider: 03/09/19 07:15 Source of Information: Reports: Patient History Limitations: Reports: No Limitations, Other (suspect mild cognitive impairment ) - History of Present Illness INITIAL COMMENTS - FREE TEXT/NARRATIVE: very pleasant 78-year-old male who comes in today with concern for loss of appetite for the past 3 days. He states he has Meals on Wheels, but hasn't really eaten much because the food doesn't seem to taste good. He has been drinking okay. Normal urination, gets up a couple times overnight. He had small bowel movement this morning which he said was slight diarrhea. no blood or black in it. Otherwise hasn't had any bowel movements in a couple of days. He denies fever, abdominal pain, vomiting, feeling lightheaded or weak, short of breath, chest pain, or dizziness. He states that he saw his primary care physician Dr. Souza last week. Mostly the patient is concerned about losing weight, and not having an appetite which makes him lose more weight. He has not had any recent upper respiratory tract infection, headache, recent sick contacts. He has no burning on urination or any other urinary tract symptoms. - Related Data Allergies Allergy/AdvReac Type Severity Reaction Status Date / Time No Known Allergies Allergy Verified 09/02/18 08:25 Home Meds: Home Meds traZODone HCl [Trazodone HCl] 50 mg PO BEDTIME 10/22/17 [History] Acetaminophen [Tylenol Extra Strength] 1,000 mg PO Q6H PRN 10/23/17 [History] Naproxen Sodium [Aleve] 220 mg PO DAILY 09/02/18 [History] Omeprazole 40 mg PO DAILY 09/02/18 [History] Amoxicillin/Clavulanate K [Augmentin 875-125 MG] 1 tab PO Q12H #19 tablet [Rx] Past Medical History - Past Health History Medical/Surgical History: Denies Medical/Surgical History Cardiovascular History: Reports: Hypertension Gastrointestinal History: Reports: GERD Musculoskeletal History: Reports: Arthritis, Back Pain, Chronic Psychiatric History: Reports: Other (See Below) Other Psychiatric History: IS ALITTLE FORGETFUL, LIKE DATE, SOME PAST EVENTS Dermatologic History: Reports: None Other Dermatologic History: rash - Infectious Disease History Infectious Disease History: Reports: None - Past Surgical History GI Surgical History: Reports: Cholecystectomy, Colonoscopy, Hernia, Abdominal Musculoskeletal Surgical History: Reports: Knee Replacement Other Musculoskeletal Surgeries/Procedures:: L knee replacement Dermatological Surgical History: Reports: Skin Graft, Other (See Below) Social & Family History - Family History Family Medical History: Unobtainable - Tobacco Use Smoking Status *Q: Never Smoker - Caffeine Use Caffeine Use: Reports: Soda, Tea Caffeine Use Comment: Drinks a couple cans of pepsi a day. - Living Situation & Occupation Social History Comment: still living at home, has refused to move to an assisted living despite concerns that he can't quite care for himself ED ROS GENERAL - Review of Systems Review Of Systems: ROS reveals no pertinent complaints other than HPI. ED EXAM, GENERAL - Physical Exam Exam: See Below Free Text/Narrative:: general: Alert, pleasant in no acute distress. Oriented to person, place and time. Head is atraumatic, neck is supple and there is no cervical lymphadenopathy. Pupils are equal and reactive and facial muscles and symmetric , speech is normal and not slurred. Heart is regular rate and rhythm, I do not hear murmur. Lungs are clear throughout with no wheezes or crackles good inspiratory effort. Abdomen positive bowel sounds, soft nondistended nontender with no rebound or guarding, no palpable stool. Patient is noted to be borderline cachectic. Peripheral pulses +2 in both the upper and lower extremities, the lower extremity edema. There are no abnormal skin lesions or rashes. strength is equal bilaterally in both the upper and lower extremities and his gait is normal. Psych: Mood and affect are appropriate, he makes good eye contact, answers questions appropriately and recent memory seems to be intact. No evidence of paranoia or hallucinations. Course - Vital Signs Text/Narrative:: initial evaluation completed. Patient appears perfectly well, main concern is loss of appetite for 3 days, and some generalized weight loss for which he saw his primary last week per his report. His abdominal exam and the rest of his physical exam are normal and benign. Offered to discuss case with primary if possible, as the last available chart information is from August. Last Recorded V/S: Last Vital Signs Temp 36.9 C 03/09/19 06:53 Pulse 85 03/09/19 06:53 Resp 18 03/09/19 06:53 BP 155/99 H 03/09/19 06:53 Pulse Ox 100 03/09/19 06:53 - Re-Assessments/Exams Free Text/Narrative Re-Assessment/Exam: 03/09/19 [address] Arnel Souza, very much appreciate assistance. Patient was seen last week in office with concern for difficulty caring for himself at home and recommended to move to assisted living, which patient adamantly refuses. Slight weight loss of 4 lbs noted at that time. Given patient is generally well appearing, overall benign exam, normal vitals, bowel movement this AM, and no other concerns will discharge from ER and recommended followup with PCP later this week. Discussed returned precautions, all questions answered. He is in agreement with this plan. Departure - Departure Time of Disposition: 07:54 Disposition: Home, Self-Care 01 Condition: Good Clinical Impression: Loss of appetite - Discharge Information *PRESCRIPTION DRUG MONITORING PROGRAM REVIEWED*: No *COPY OF PRESCRIPTION DRUG MONITORING REPORT IN PATIENT REINALDO: No Instructions: Constipation, Adult, [id number] Referrals: Izaiah Petty MD [Primary Care Provider] - Forms: ED Department Discharge Additional Instructions: follow up with Dr. Souza sometime this week to discuss appetite loss continue medications as prescribed, including stool softener may want to try eating bland diet for a day or two -- bananas, apples, rice, toast -- or whatever seems to smell good keep drinking lots of fluid to maintain hydration if fever, severe abdominal pain, feeling lightheaded or dizzy, recurrent vomiting, or blood in stools should return to ER for immediate re-evaluation or any other concerns Take very good care
== END 2019-03-09 08:08 | disposition home or self-care (01) ==
LOC: FB.ED 06:53
DX: R63.0 Anorexia (principal); I10 Essential (primary) hypertension; K21.9 Gastro-esophageal reflux disease without esophagitis; M19.90 Unspecified osteoarthritis, unspecified site; Z79.899 Other long term (current) drug therapy
CPT/HCPCS: 99282

== ENCOUNTER 2019-10-09 15:42 | Emergency (ER) | payer MEDICARE ==
[2019-10-09] MEDS ORDERED: traMADol 50 MG Tab PO ONE (16:00)
[2019-10-09] MEDS ORDERED: Cyclobenzaprine 10 MG Tab PO ONE (16:00)
[2019-10-09] MEDS ORDERED: Ketorolac 30 MG/ML SDV IM STA (16:00)
--- NOTE | 2019-10-09 17:30 | EDM.PDOC ---
ED HPI GENERAL MEDICAL PROBLEM - General Stated Complaint: PAIN IN LOWER ON LT SIDE Time Seen by Provider: 10/09/19 15:55 Source of Information: Reports: Patient History Limitations: Reports: No Limitations - History of Present Illness INITIAL COMMENTS - FREE TEXT/NARRATIVE: Patient presented to the Ed because of low back pain. He was at the [employer] when all of a sudden he has the low back sharmila, 7/10, worse with movements. he has a a history of chronic low back pain but it's worse today. Left Back Pain Score (Numeric/FACES): 6 - Related Data Allergies Allergy/AdvReac Type Severity Reaction Status Date / Time No Known Allergies Allergy Verified 10/10/19 15:03 Home Meds: Home Meds traZODone HCl [Trazodone HCl] 50 mg PO BEDTIME 10/22/17 [History] Acetaminophen [Tylenol Extra Strength] 1,000 mg PO Q6H PRN 10/23/17 [History] Naproxen Sodium [Aleve] 220 mg PO DAILY 09/02/18 [History] Omeprazole 40 mg PO DAILY 09/02/18 [History] Amoxicillin/Clavulanate K [Augmentin 875-125 MG] 1 tab PO Q12H #19 tablet [Rx] Cyclobenzaprine [Flexeril] 5 mg PO Q8H PRN #15 tab 10/09/19 [Rx] Past Medical History - Past Health History Medical/Surgical History: Denies Medical/Surgical History Cardiovascular History: Reports: Hypertension Gastrointestinal History: Reports: GERD Musculoskeletal History: Reports: Arthritis, Back Pain, Chronic Psychiatric History: Reports: Other (See Below) Other Psychiatric History: IS ALITTLE FORGETFUL, LIKE DATE, SOME PAST EVENTS Dermatologic History: Reports: None Other Dermatologic History: rash - Infectious Disease History Infectious Disease History: Reports: None - Past Surgical History GI Surgical History: Reports: Cholecystectomy, Colonoscopy, Hernia, Abdominal Musculoskeletal Surgical History: Reports: Knee Replacement Other Musculoskeletal Surgeries/Procedures:: L knee replacement Dermatological Surgical History: Reports: Skin Graft, Other (See Below) Social & Family History - Family History Family Medical History: Unobtainable - Caffeine Use Caffeine Use: Reports: Soda, Tea Caffeine Use Comment: Drinks a couple cans of pepsi a day. ED ROS GENERAL - Review of Systems Review Of Systems: See Below Constitutional: Reports: No Symptoms HEENT: Reports: No Symptoms Respiratory: Reports: No Symptoms Cardiovascular: Reports: No Symptoms Endocrine: Reports: No Symptoms GI/Abdominal: Reports: No Symptoms : Reports: No Symptoms Musculoskeletal: Reports: Back Pain Skin: Reports: No Symptoms Neurological: Reports: No Symptoms Psychiatric: Reports: No Symptoms ED EXAM,LOWER BACK PAIN/INJURY - Physical Exam Exam: See Below Exam Limited By: No Limitations General Appearance: Alert, No Apparent Distress Ears: Normal External Exam, Normal Canal Throat/Mouth: Normal Inspection, Normal Lips Head: Atraumatic, Normocephalic Neck: Normal Inspection Respiratory/Chest: No Respiratory Distress, Lungs Clear, Normal Breath Sounds Cardiovascular: Normal Peripheral Pulses, Regular Rate, Rhythm, No Edema, No Gallop GI/Abdominal: Normal Bowel Sounds, Soft, Non-Tender, No Organomegaly, No Distention Back Exam: Normal Inspection, Muscle Spasm Extremities: Normal Inspection Neurological: Alert, Normal Mood/Affect, Normal Dorsiflexion, CN II-XII Intact Course - Vital Signs Text/Narrative:: toradol 30 mg IM x1 Tramadol 100 mg po x1 with significant relief of his pain. Last Recorded V/S: Last Vital Signs Temp 36.2 C 10/09/19 15:42 Pulse 84 10/09/19 17:45 Resp 16 10/09/19 17:45 BP 149/93 H 10/09/19 17:45 Pulse Ox 100 10/09/19 17:45 - Orders/Labs/Meds Meds: Medications Discontinued Medications Generic Name Dose Route Start Last Admin Trade Name Freq PRN Reason Stop Dose Admin Cyclobenzaprine HCl 10 mg 10/09/19 16:00 10/09/19 17:15 Flexeril PO 10/09/19 16:01 10 mg ONETIME ONE Administration Ketorolac Tromethamine 30 mg 10/09/19 16:00 10/09/19 17:15 Toradol IM 10/09/19 16:01 30 mg NOW STA Administration Tramadol HCl 100 mg 10/09/19 16:00 10/09/19 17:14 Ultram PO 10/09/19 16:01 100 mg ONETIME ONE Administration Departure - Departure Time of Disposition: 17:30 Disposition: Home, Self-Care 01 Condition: Good Clinical Impression: Lumbar sprain - Discharge Information Prescriptions: Cyclobenzaprine [Flexeril] 5 mg PO Q8H PRN #15 tab PRN Reason: Spasms Instructions: Low Back Strain Referrals: Arnel Souza PA [Primary Care Provider] - Additional Instructions: please read discharge instructions on lumbar sprain take your naproxen and tylenol as directed for pain flexeril 5 mg every 8 hours as needed for muscle spasm follow up as needed Sepsis Event Note - Focused Exam Date Exam was Performed: 10/11/19 Time Exam was Performed: 16:37
== END 2019-10-09 17:50 | disposition home or self-care (01) ==
LOC: FB.ED 15:42
DX: S33.5XXA Sprain of ligaments of lumbar spine, initial encounter (principal); I10 Essential (primary) hypertension; Z90.49 Acquired absence of other specified parts of digestive tract; M19.90 Unspecified osteoarthritis, unspecified site; K21.9 Gastro-esophageal reflux disease without esophagitis; Z79.899 Other long term (current) drug therapy; X58.XXXA Exposure to other specified factors, initial encounter
CPT/HCPCS: 96372; 99283; A9270-GY; J1885

== ENCOUNTER 2021-02-10 12:28 | Observation (INO) | payer MEDICARE ==
[2021-02-10] MEDS ORDERED: Non-Formulary Medication 1 Each (Menthol [Biofreeze] 118 ML Gel..Ml.) TOP PRN (13:57)
[2021-02-10] MEDS ORDERED: Acetaminophen 500 MG Tab PO PRN (13:57)
--- NOTE | 2021-02-10 14:45 | PCM.HP.2 ---
H&P History of Present Illness - General Date of Service: 02/10/21 Admit Problem/Dx: Admission Diagnosis/Problem Admission Diagnosis/Problem Chest pain Source of Information: Patient, Family, Provider (Arnel Souza PA-C) History Limitations: Reports: Physical Impairment (vascular dementia) - History of Present Illness Initial Comments - Free Text/Narative: Gonzalez Schultz" presented to [facility] today for chest pressure radiating down left arm on exertion, relieved with rest that started yesterday. He had episode of lightheadedness yesterday, denied room spinning. No fevers, cough, sore throat, shortness of breath, nausea or vomiting associated with chest pressure. He did not have a baseline EKG at the clinic for comparison but reported that there was no EKG changes suggestive of ischemia. iSTAT troponin was 0.00. WBC 6.8, Hgb 13.7, platelets 298, Na 135, K 4.5, Cl 96, CO2 25, Creatinine 0.8, BUN 9, glu 104. Chest x-ray sent over by PACs. He has had both Covid vaccine doses 1st in Aug at , 2nd in September at [facility]. His [id number] is his POA, helped with history. He is a FULL code and if his troponin does elevate they would want transfer to [place] for interventions. - Related Data Allergies/Adverse Reactions: Allergies Allergy/AdvReac Type Severity Reaction Status Date / Time No Known Allergies Allergy Verified 10/10/19 15:03 Home Medications: Home Meds traZODone HCl [Trazodone HCl] 150 mg PO BEDTIME 10/22/17 [History] Acetaminophen [Tylenol Extra Strength] 1,000 mg PO Q6H PRN 10/23/17 [History] Cholecalciferol (Vitamin D3) [Vitamin D3] 25 mcg PO DAILY 02/10/21 [History] Menthol [Biofreeze] 1 applic TOP QID PRN 02/10/21 [History] Pantoprazole Sodium [Protonix] 40 mg PO DAILY 02/10/21 [History] Past Medical History - Past Health History Medical/Surgical History: Denies Medical/Surgical History HEENT History: Reports: Impaired Vision Cardiovascular History: Reports: Hypertension Respiratory History: Reports: SOB Gastrointestinal History: Reports: GERD Musculoskeletal History: Reports: Arthritis, Back Pain, Chronic Neurological History: Reports: Other (See Below) Other Neuro History: CONFUSION- DEMENTIA Psychiatric History: Reports: Other (See Below) Other Psychiatric History: IS ALITTLE FORGETFUL, LIKE DATE, SOME PAST EVENTS Dermatologic History: Reports: None Other Dermatologic History: rash - Infectious Disease History Infectious Disease History: Reports: None - Past Surgical History GI Surgical History: Reports: Cholecystectomy, Colonoscopy, Hernia, Abdominal Musculoskeletal Surgical History: Reports: Knee Replacement Other Musculoskeletal Surgeries/Procedures:: L knee replacement Dermatological Surgical History: Reports: Skin Graft, Other (See Below) Social & Family History - Family History Family Medical History: Unobtainable - Caffeine Use Caffeine Use: Reports: Soda, Tea Caffeine Use Comment: Drinks a couple cans of pepsi a day. H&P Review of Systems - Review of Systems: Review Of Systems: See Below General: Reports: No Symptoms HEENT: Reports: No Symptoms Pulmonary: Reports: No Symptoms Cardiovascular: Reports: Chest Pain, Dyspnea on Exertion, Lightheadedness Gastrointestinal: Reports: No Symptoms Genitourinary: Reports: No Symptoms Musculoskeletal: Reports: No Symptoms Skin: Reports: Rash (groin) Psychiatric: Reports: No Symptoms Neurological: Reports: Confusion Hematologic/Lymphatic: Reports: No Symptoms Immunologic: Reports: No Symptoms Exam - Exam Exam: See Below - Vital Signs Vital Signs: Last Vital Signs Temp 97.7 F 02/10/21 13:10 Pulse 54 L 02/10/21 13:10 Resp 19 02/10/21 13:10 BP 140/77 02/10/21 13:10 Pulse Ox 100 02/10/21 13:10 - Exam General: Alert, Oriented (person, place), Cooperative. No: Mild Distress HEENT: PERRLA, Conjunctiva Clear, EOMI, Mucosa Moist & [place]. No: Hearing Intact Neck: Trachea Midline Lungs: Clear to Auscultation, Normal Respiratory Effort Cardiovascular: Bradycardia GI/Abdominal Exam: Normal Bowel Sounds, Soft, Non-Tender, No Distention (Male) Exam: Circumcised, Rash (fine macular rash with satellite lesions consistent with candidal skin infection, bilateral groin). No: Penile Lesions, Scrotal Swelling Rectal (Males) Exam: Deferred Extremities: No Pedal Edema Peripheral Pulses: 2+: Radial (L), Radial (R) Skin: Rash (dry skin with linear hyperpigmentation medial right calf) Neurological: Cranial Nerves Intact Neuro Extensive - Mental Status: Disorientation to Time, Memory Loss-Recent Events - Patient Data Lab Results Last 24 hrs: WBC 6.8, Hgb 13.7, platelets 298, Na 135, K 4.5, Cl 96, CO2 25, Creatinine 0.8, BUN 9, glu 104. Sepsis Event Note - Focused Exam Vital Signs: Vital Signs Temp Pulse Resp BP Pulse Ox 02/10/21 13:10 97.7 F 54 L 19 140/77 100 *Q Meaningful Use (ADM) - VTE Risk Assess *Q Each Risk Factor Represents 1 Point: None Total Score 1 Point Risk Factors: 0 Each Risk Factor Represents 2 Points: None Total Score 2 Point Risk Factors: 0 Each Risk Factor Represents 3 Points: Age 75 Years or Greater Total Score 3 Point Risk Factors: 3 Each Risk Factor Represents 5 Points: None Total Score 5 Point Risk Factors: 0 Venous Thromboembolism Risk Factor Score *Q: 3 - Problem List (1) Chest pain SNOMED Code(s): 28575096 ICD Code: R07.9 - CHEST PAIN, UNSPECIFIED Status: Acute Current Visit: Yes (2) Rosaura infection of genital region SNOMED Code(s): 538306515 ICD Code: B37.49 - OTHER UROGENITAL CANDIDIASIS Status: Acute Current Visit: Yes (3) GERD (gastroesophageal reflux disease) SNOMED Code(s): 647543099 ICD Code: K21.9 - GASTRO-ESOPHAGEAL REFLUX DISEASE WITHOUT ESOPHAGITIS Status: Chronic Current Visit: Yes (4) Vascular dementia SNOMED Code(s): 537146579 ICD Code: F01.50 - VASCULAR DEMENTIA WITHOUT BEHAVIORAL DISTURBANCE Status: Chronic Current Visit: Yes (5) Insomnia SNOMED Code(s): 138968148 ICD Code: G47.00 - INSOMNIA, UNSPECIFIED Status: Chronic Current Visit: Yes Problem List Initiated/Reviewed/Updated: Yes Orders Last 24hrs: Active Orders 24 hr Category Date Time Status Patient Status [ADT] Routine ADT 02/10/21 13:15 Active Cardiac Education [RC] Click to Edit Care 02/10/21 13:12 Active EKG Documentation Completion [RC] ASDIRECTED Care 02/10/21 13:12 Active EKG Documentation Completion [RC] ASDIRECTED Care 02/10/21 15:30 Active May Shower [RC] ASDIRECTED Care 02/10/21 13:12 Active Oxygen Therapy [RC] PRN Care 02/10/21 13:12 Active Telemetry Monitoring [Cardiac Monitoring] [RC] .As Care 02/10/21 13:56 Active Directed Up With Assistance [RC] ASDIRECTED Care 02/10/21 13:12 Active Vital Signs [RC] Q4H Care 02/10/21 13:12 Active Regular Diet [DIET] Diet 02/10/21 Lunch Active LIPID PANEL [CHEM] Routine Lab 02/11/21 06:00 Ordered TROPONIN I [CHEM] Routine Lab 02/10/21 15:30 Ordered TROPONIN I [CHEM] Routine Lab 02/10/21 21:00 Ordered TROPONIN I [CHEM] Routine Lab 02/11/21 06:00 Ordered Acetaminophen [Tylenol Extra Strength] Med 02/10/21 13:57 Ordered 1,000 mg PO Q6H PRN Aspirin Med 02/10/21 13:15 Active 81 mg PO DAILY Menthol [Biofreeze] Med 02/10/21 13:57 Ordered 1 applic TOP QID PRN Pantoprazole [ProTONIX] Med 02/11/21 09:00 Ordered 40 mg PO DAILY traZODone HCl [Trazodone HCl] Med 02/10/21 21:00 Ordered 150 mg PO BEDTIME Resuscitation Status Routine Resus Stat 02/10/21 13:12 Ordered EKG 12 Lead [EK] Routine Ther 02/10/21 15:30 Ordered Medication Orders Acetaminophen (Acetaminophen 500 Mg Tab) 1,000 mg PO Q6H PRN PRN Reason: Pain Aspirin (Aspirin 81 Mg Tab.Chew) 81 mg PO DAILY DAVID Non-Formulary Medication (Menthol [Biofreeze]) 1 applic TOP QID PRN PRN Reason: JOINT PAIN Non-Formulary Medication (Trazodone Hcl [Trazodone Hcl]) 150 mg PO BEDTIME DAVID Pantoprazole Sodium (Pantoprazole 40 Mg Tab.Cr) 40 mg PO DAILY DAVID Assessment/Plan Comment:: 1. Admit for observation for chest pain, rule out acute coronary syndrome. 2. Chest pain: telemetry, serial troponin next due at 1530, EKG, Aspirin 81 mg daily. He is bradycardiac so will not start any Metoprolol. Blood pressure 140/77 on admission, will monitor and if needed add Lisinopril 2.5 mg daily. Lipid panel for tomorrow morning. His [id number], ALFONSO did state if his troponin elevated they would want transfer to [place] for evaluation by Cardiology. 3. Candidal skin infection: Nystatin powder to groin bid until cleared. 4. Continue home medications for chronic conditions. 5. Diet: Regular. 6. DVT prophylaxis: TEDs BLE. If 1530 troponin elevated then will start Lovenox therapeutic dose. 7. CODE STATUS: FULL. 8. Discharge: anticipate 24 hr observation stay with serial cardiac enzymes, will adjust treatments as necessary. - Mortality Measure Prognosis:: Poor
[2021-02-10] MEDS: Aspirin 81 MG Tab.Chew PO SCH (16:16)
--- NOTE | 2021-02-10 16:17 | PCM.EKG ---
#1 Interpretation EKG Date: 02/10/21 Time: 15:59 Rhythm: NSR Rate (Beats/Min): 69 [place]: Normal P-Wave: Present (prolonged) QRS: Normal ST-T: Normal QT: Normal Comparison: NA - No Prior EKG EKG Interpretation Comments: Normal sinus rhythm. No ST-T wave changes, no signs of ischemia or infarct.
[2021-02-10] MEDS: Nystatin Topical Powder 15 GM Bottle TOP SCH ×2 (16:54→20:00)
[2021-02-10] MEDS ORDERED: Non-Formulary Medication 1 Each (Trazodone Hcl [Trazodone Hcl] 150 MG Tablet) PO SCH (21:00)
[2021-02-11] MEDS ORDERED: Sodium Chloride 0.9% 10 ML Syringe FLUSH PRN (06:16)
[2021-02-11] MEDS: Aspirin 81 MG Tab.Chew PO SCH (08:54)
[2021-02-11] MEDS ORDERED: Pantoprazole 40 MG Tab.CR PO SCH (09:00)
[2021-02-11] MEDS: Nystatin Topical Powder 15 GM Bottle TOP SCH (09:54)
--- NOTE | 2021-02-11 15:09 | PCM.DCSUM1 ---
Discharge Summary - Hospital Course HPI Initial Comments: Gonzalez Schultz" presented to [facility] today for chest pressure radiating down left arm on exertion, relieved with rest that started yesterday. He had episode of lightheadedness yesterday, denied room spinning. No fevers, cough, sore throat, shortness of breath, nausea or vomiting associated with chest pressure. He did not have a baseline EKG at the clinic for comparison but reported that there was no EKG changes suggestive of ischemia. iSTAT troponin was 0.00. WBC 6.8, Hgb 13.7, platelets 298, Na 135, K 4.5, Cl 96, CO2 25, Creatinine 0.8, BUN 9, glu 104. Chest x-ray sent over by PACs. He has had both Covid vaccine doses 1st in Aug at [facility], 2nd in September at [facility]. His [id number] is his POA, helped with history. He is a FULL code and if his troponin does elevate they would want transfer to [place] for interv entions. Diagnosis: Stroke: No - Discharge Data Discharge Date: 02/11/21 Discharge Disposition: Home, Self-Care 01 Condition: Good - Referral to Home Health Primary Care Physician: TRENT Lau - Discharge Diagnosis/Problem(s) (1) Bradycardia SNOMED Code(s): 79224095 ICD Code: R00.1 - BRADYCARDIA, UNSPECIFIED Status: Acute (2) Chest pain SNOMED Code(s): 44890065 ICD Code: R07.9 - CHEST PAIN, UNSPECIFIED Status: Resolved (3) Rosaura infection of genital region SNOMED Code(s): 839570204 ICD Code: B37.49 - OTHER UROGENITAL CANDIDIASIS Status: Acute (4) GERD (gastroesophageal reflux disease) SNOMED Code(s): 273887637 ICD Code: K21.9 - GASTRO-ESOPHAGEAL REFLUX DISEASE WITHOUT ESOPHAGITIS Status: Chronic (5) Vascular dementia SNOMED Code(s): 491406512 ICD Code: F01.50 - VASCULAR DEMENTIA WITHOUT BEHAVIORAL DISTURBANCE Status: Chronic (6) Insomnia SNOMED Code(s): 942005211 ICD Code: G47.00 - INSOMNIA, UNSPECIFIED Status: Chronic - Patient Summary/Data Hospital Course: [place] was admitted for observation for chest pain, repeat troponin was 6.3, 5.0, 4.3 since admission. EKG showed normal sinus rhythm rate 69, no ST-T wave changes; no signs of ischemia or infarct. Telemetry showed bradycardia, his lowest rate was 44 overnight. Pulse check with his vitals showed pulse in 50s. He has not had any recurrence of symptoms that he had prior to admission. Lipid panel was well controlled. Chest x-ray done at [facility] was negative for acute process. BP this morning was 122/72. 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 He will be discharged to home in the care of his family, follow up at [facility] clinic for bradycardia. - Patient Instructions Diet: Usual Diet as Tolerated Activity: As Tolerated Driving: Do Not Drive Showering/Bathing: May Shower Notify Provider of: Fever, Increased Pain, Swelling and Redness, Nausea and/or Vomiting Other/Special Instructions: Follow up with Arnel Souza PA-C on Saturday or Saturday next week to recheck your heart rate, while monitoring your heart it was beating very slow, lowest was 44 beats per min(normal is 60-100). - Discharge Plan *PRESCRIPTION DRUG MONITORING PROGRAM REVIEWED*: Not Applicable *COPY OF PRESCRIPTION DRUG MONITORING REPORT IN PATIENT REINALDO: Not Applicable Prescriptions/Med Rec: Nystatin [Nystop] 1 gm TOP BID #1 bottle Home Medications: Home Meds traZODone HCl [Trazodone HCl] 150 mg PO BEDTIME 10/22/17 [History] Acetaminophen [Tylenol Extra Strength] 1,000 mg PO Q6H PRN 10/23/17 [History] Cholecalciferol (Vitamin D3) [Vitamin D3] 25 mcg PO DAILY 02/10/21 [History] Menthol [Biofreeze] 1 applic TOP QID PRN 02/10/21 [History] Pantoprazole Sodium [Protonix] 40 mg PO DAILY 02/10/21 [History] Nystatin [Nystop] 1 gm TOP BID #1 bottle 02/11/21 [Rx] Oxygen Therapy Mode: Room Air Patient Handouts: Fall Prevention in Hospitals, Adult, Venous Thromboembolism Prevention, Angina, [id number] Referrals: Arnel Souza PA [Primary Care Provider] - - Discharge Summary/Plan Comment DC Time >30 min.: No - Patient Data Vitals - Most Recent: Last Vital Signs Temp 98.5 F 02/11/21 08:00 Pulse 64 02/11/21 08:00 Resp 18 02/11/21 08:00 BP 140/90 02/11/21 08:00 Pulse Ox 93 L 02/11/21 08:15 Weight - Most Recent: 159 lb 4 oz Lab Results - Last 24 hrs: Laboratory Results - last 24 hr 02/10/21 02/10/21 02/11/21 Range/Units 15:30 21:45 06:25 Troponin I 6.3 5.0 (4.0-60.3) pg/mL Triglycerides 49 (15-150) mg/dL Cholesterol 182 (50-200) mg/dL LDL Cholesterol Direct 85 (60-130) mg/dL HDL Cholesterol 87 H (40-75) mg/dL Cholesterol/HDL Ratio 2.1 (0-5) 02/11/21 Range/Units 06:25 Troponin I 4.3 (4.0-60.3) pg/mL Triglycerides (15-150) mg/dL Cholesterol (50-200) mg/dL LDL Cholesterol Direct (60-130) mg/dL HDL Cholesterol (40-75) mg/dL Cholesterol/HDL Ratio (0-5) Med Orders - Current: Current Medications Discontinued Medications Acetaminophen (Acetaminophen 500 Mg Tab) 1,000 mg PO Q6H PRN PRN Reason: Pain Aspirin (Aspirin 81 Mg Tab.Chew) 81 mg PO DAILY [facility] Last Admin: 02/11/21 08:54 Dose: 81 mg Documented by: Non-Formulary Medication (Menthol [Biofreeze]) 1 applic TOP QID PRN PRN Reason: JOINT PAIN Non-Formulary Medication (Trazodone Hcl [Trazodone Hcl]) 150 mg PO BEDTIME [facility] Nystatin (Nystatin Topical Powder 15 Gm Bottle) 1 gm TOP BID [facility] Last Admin: 02/11/21 09:54 Dose: 1 applic Documented by: Pantoprazole Sodium (Pantoprazole 40 Mg Tab.Cr) 40 mg PO DAILY [facility] Sodium Chloride (Sodium Chloride 0.9% 10 Ml Syringe) 10 ml FLUSH ASDIRECTED PRN PRN Reason: Keep Vein Open Last Admin: 02/10/21 20:00 Dose: 10 ml Documented by:
== END 2021-02-11 11:11 | disposition home or self-care (01) ==
LOC: FB.MS 12:47
PROVIDERS: ADMIT Family Medicine; ATTEND Family Medicine
DX: R07.9 Chest pain, unspecified (principal); R00.1 Bradycardia, unspecified; B37.49 Other urogenital candidiasis; I10 Essential (primary) hypertension; K21.9 Gastro-esophageal reflux disease without esophagitis; F01.50 Vascular dementia, unspecified severity, without behavioral disturbance, psychotic disturbance, mood disturbance, and anxiety; G47.00 Insomnia, unspecified; Z90.49 Acquired absence of other specified parts of digestive tract; Z79.899 Other long term (current) drug therapy; Z98.890 Other specified postprocedural states
CPT/HCPCS: 36415; 80061; 84484; 93005; A9270

== ENCOUNTER 2022-03-16 06:45 | Emergency (ER) | payer MEDICARE ==
[2022-03-16 08:07] LABS: ESTIMATED GFR 85 mL/min (>60)
[2022-03-16] MEDS: Acetaminophen 500 MG Tab ONE ×2 (09:30→10:20)
[2022-03-16] MEDS ORDERED: Ibuprofen 600 MG Tab PO ONE (09:30)
[2022-03-16] MEDS ORDERED: Acetaminophen 500 MG Tab PO ONE (09:30)
[2022-03-16] MEDS ORDERED: Ibuprofen 600 MG Tab ONE (09:36)
== END 2022-03-16 09:40 | disposition home or self-care (01) ==
LOC: FB.ED 06:45
DX: S70.01XA Contusion of right hip, initial encounter (principal); S50.01XA Contusion of right elbow, initial encounter; F03.90 Unspecified dementia, unspecified severity, without behavioral disturbance, psychotic disturbance, mood disturbance, and anxiety; I10 Essential (primary) hypertension; K21.9 Gastro-esophageal reflux disease without esophagitis; Z79.899 Other long term (current) drug therapy; W18.30XA Fall on same level, unspecified, initial encounter
CPT/HCPCS: 36415; 71045; 73080-RT; 73522; 80053; 81001; 84443; 84484; 85025; 93005; 93010; 99284; 99285; A9270-GY

== ENCOUNTER 2023-01-26 16:54 | Emergency (ER) | payer MEDICARE ==
[2023-01-26] MEDS ORDERED: Sodium Chloride 0.9% 10 ML Syringe FLUSH PRN (17:12)
[2023-01-26 17:48] LABS: HEMATOCRIT 36.7 % (38.3-50.1); HEMOGLOBIN 12.2 g/dL (12.9-17.7); MEAN CORPUSCULAR HEMOGLOBIN 31.1 pg (27.0-33.3); MEAN CORPUSCULAR HGB CONC 33.3 g/dL (28.7-35.3); MEAN CORPUSCULAR VOLUME 93.4 fL (80.8-98.7); MEAN PLATELET VOLUME 7.1 fL (6.7-11.0); PLATELET COUNT,PLT 417 x10(3)uL (117-477); RED BLOOD CELL COUNT 3.93 x10(6)uL (3.90-5.90); RED CELL DISTRIBUTION WIDTH 15.1 % (12.4-15.0); WHITE BLOOD CELL COUNT,WBC 12.8 x10-3/uL (3.2-10.1)
[2023-01-26 17:54] LABS: BLOOD UREA NITROGEN,BUN 13 mg/dL (7-18); CALCIUM 8.9 mg/dL (8.6-10.2); CARBON DIOXIDE,CO2 26 mmol/L (21-32); CHLORIDE,CL 102 mmol/L (100-110); ESTIMATED GFR 74 mL/min (>60); GLUCOSE RANDOM 147 mg/dL (80-116); POTASSIUM,K 3.8 mmol/L (3.5-5.3); SODIUM,NA 138 mmol/L (135-145)
[2023-01-26 17:59] LABS: A/G RATIO 0.6; ALANINE AMINOTRANSFERASE,ALT 102 U/L (12-36); ALBUMIN 2.4 g/dL (3.2-4.6); ALKALINE PHOSPHATASE 589 IU/L (56-112); ASPARTATE AMNIOTRANSFERASE,AST 105 IU/L (5-25); BILIRUBIN TOTAL 3.2 mg/dL (0.1-1.3); MAGNESIUM 1.7 mg/dL (1.8-2.5); PROTEIN TOTAL,TP 6.3 g/dL (6.0-8.0)
[2023-01-26 18:01] LABS: BASE EXCESS VENOUS,POC 1 mmol/L (-2 - 3+); PCO2 VENOUS,POC 27 mmHg (41-51); PH VENOUS,POC 7.54 pH Units (7.32-7.43)
[2023-01-26] MEDS ORDERED: Sodium Chloride 0.9% 1,000 ML IV ONE (18:18)
[2023-01-26 18:19] LABS: LYMPHOCYTES PERCENT MAN 3 % (13-37); MONOCYTES PERCENT MAN 4 % (4-12); SEG NEUTROPHILS PERCENT MAN 93 % (46-82)
[2023-01-26 18:20] LABS: ANISOCYTOSIS FEW
[2023-01-26] MEDS ORDERED: Iopamidol 755 Mg/ML 100 ML Bottle IV SCH (20:00)
[2023-01-26] MEDS ORDERED: Sodium Chloride 0.9% 1,000 ML IV SCH (20:15)
[2023-01-26 20:34] LABS: INFLUENZA A NAA NEGATIVE (NEGATIVE); INFLUENZA B NAA NEGATIVE (NEGATIVE)
[2023-01-26 20:36] LABS: CORONAVIRUS COVID-19 NAA NEGATIVE (NEGATIVE)
[2023-01-26] MEDS ORDERED: Haloperidol Lactate 5 MG/ML SDV IM ONE (20:36)
[2023-01-26] MEDS ORDERED: Piperacillin/Tazobactam 4.5 GM in Sodium Chloride 0.9% 100 ML IV SCH (21:15)
[2023-01-27 00:43] VITALS: BP 123/68; PULSE 92
== END 2023-01-26 22:45 ==
LOC: FB.ED 16:54
DX: E86.0 Dehydration (principal); F03.90 Unspecified dementia, unspecified severity, without behavioral disturbance, psychotic disturbance, mood disturbance, and anxiety; R79.89 Other specified abnormal findings of blood chemistry; E80.6 Other disorders of bilirubin metabolism; E87.20 Acidosis, unspecified; I10 Essential (primary) hypertension; Z79.899 Other long term (current) drug therapy; Z20.822 Contact with and (suspected) exposure to COVID-19
CPT/HCPCS: 0240U; 36415; 51798; 70450; 71045; 74177; 80053; 83605; 83735; 84484; 85025; 87040; 93005; 96361; 96365; 96372; 99285-25; J1630; J2543; J3490; J7030; Q9967